=== PATIENT | male | born 1925 | race Caucasian/White ===

== ENCOUNTER 2016-05-18 09:25 | Inpatient (IN) ==
[2016-05-18] MEDS ORDERED: Vancomycin 1,000 MG VIAL IVPB ONE (09:29)
[2016-05-18] MEDS ORDERED: Piperacillin/Tazobactam 3.375 GM in D5% in Water (Mini-Bag+) 100 ML IVPB ONE (09:29)
[2016-05-18] MEDS ORDERED: 0.9 % Sodium Chloride 500 ML IVC ONE (09:31)
--- NOTE | 2016-05-18 09:37 | Emergency Department Note ---
Disposition Clinical Impression: Sepsis Qualifiers: Sepsis type: sepsis due to unspecified organism Qualified Code(s): A41.9 - Sepsis, unspecified organism UTI (urinary tract infection) Qualifiers: Urinary tract infection type: site unspecified Hematuria presence: with hematuria Qualified Code(s): N39.0 - Urinary tract infection, site not specified Disposition: Admitted As Inpatient Condition: Critical Time of Disposition: 11:14 General Adult HPI - General Chief complaint: ED Shortness of Breath/Dyspnea Stated complaint: A-Fib RVR/Pneumonia Time Seen by Provider: 05/18/16 09:28 Nursing Notes Reviewed: Yes Vital Signs Reviewed: Yes - History of Present Illness HPI Narrative: Mr. Manzo, an 89yo male[facility] This morning, patient had dyspnea. PMH: dementia, CKD III, CAD, HTN, HLD, A.Fib not anticoagulated rate controlled on metoprolol. - Related Data Home Medications Medication Instructions Recorded Confirmed Acetaminophen [Tylenol] 975 mg PO TID 12/20/15 12/20/15 Alfuzosin HCl [Uroxatral] 10 mg PO DAILY 12/20/15 12/20/15 Bisacodyl [Dulcolax] 10 mg RC DAILY PRN 12/20/15 12/20/15 Carboxymethylcellulos/Glycerin 1 drop OP TID 12/20/15 12/22/15 [Refresh Optive Gel Eye Drops] Hydrocortisone 1% CREAM [Cortaid] 1 appl TP BID PRN 12/20/15 12/20/15 Isosorbide MONOnitrate (24 HR) 15 mg PO DAILY 12/20/15 12/20/15 [Imdur] Ketotifen Fumarate [Zaditor] 1 drop OP BID 12/20/15 12/22/15 LORazepam [Ativan] 0.5 mg PO Q6HR PRN 12/20/15 12/20/15 Magnesium Hydroxide [Milk of 30 ml PO DAILY PRN 12/20/15 12/22/15 Magnesia] Menthol/Zinc Oxide [Calmoseptine 1 appl TP BID 12/20/15 12/20/15 Ointment Packet] Methyl Salicylate/Menthol [Bengay] 1 appl TP TID PRN 12/20/15 12/22/15 Metoprolol XL (24 HR) Succ [Toprol 50 mg PO BID 12/20/15 12/20/15 Xl] Nitroglycerin [Nitrostat] 0.4 mg SL PRN PRN 12/20/15 12/20/15 Ondansetron HCl [Zofran] 4 mg PO Q4HR PRN 12/20/15 12/20/15 Polyethylene Glycol 3350 [Purelax] 17 gm PO DAILY 12/20/15 12/20/15 Sennosides/Docusate Sodium [Eql 1 each PO BID 12/20/15 12/20/15 Stool Softener-Stim Lax Tb] TraZODone 100 mg PO HS 12/20/15 12/20/15 BuPROPion SR (12 HR) [Wellbutrin 100 mg PO DAILY 12/21/15 12/21/15 SR] Saline Nasal [place] [[place] Nasal 1 spray IN BID 12/22/15 12/22/15 [place]] Previous Rx's Medication Instructions Recorded Belladonna Alkaloids/Opium [B + O] 60 mg RC Q6HR PRN #5 supp.rect 12/23/15 Cephalexin [Keflex] 500 mg PO BID #6 capsule 12/23/15 Finasteride [Proscar] 5 mg PO DAILY tablet 12/23/15 Haloperidol 2 mg PO Q6HR PRN #15 tablet 12/23/15 Melatonin 6 mg PO HS tablet 12/23/15 Oxycodone HCl [Oxaydo] 5 mg PO Q6H PRN #20 tablet.orl 12/23/15 Allergies Allergy/AdvReac Type Severity Reaction Status Date / Time rosuvastatin Allergy See Verified 12/19/15 22:23 Comments tetanus and diphtheria Allergy See Verified 12/19/15 22:23 toxoids Comments [Tetanus&Diphtheria Toxoid] IV Contrast Allergy See Uncoded 10/23/15 17:59 Comments Limitations: ROS unobtainable due to patients medical condition Past Medical History - Past Medical History Medical history: Reports: arthritis, coronary artery disease, dementia, kidney stones, other (Alzheimer's dementia) Surgical history: Reports: coronary bypass (CABG), prostatectomy, ureteral stent Psychiatric history: Reports: anxiety - Social History Smoking Status: Former smoker Smokeless Tobacco Status: No Alcohol use: Reports: none Drug use: Reports: none Physical Exam General: Patient is not alert, not oriented, and in respiratory distress with mild accessory muscle use. HEENT: No facial asymmetry. Head is normocephalic and atraumatic. Pupils pinpoint and non-reactive. Trachea midline. Cardiovascular: Heart regular rate and rhythm without clicks, rubs, gallops, or murmurs. No JVD. PMI nondisplaced. 1+ pedal edema. Respiratory: Symmetric chest rise with poor respiratory effort. Bilateral breath sounds are clear without wheezing, crackles, or rhonchi. Abdomen: Bowel sounds present normoactive x-4 quadrants. Abdomen is soft, nondistended, and nontender. No organomegaly noted. Neuro: Retracts and localizes to painful stimuli. Integument: Midsternal scar, abdominal scaring. Psych: Patient's affect is appropriate for situation. Course Course Narrative: Patient is known DNR-CCA from the [place] inpatient custodial care. Patient meets SIRS criteria; currently source unknown. Patient is a poor historian; he is unable to answer simple yes/no questions. Will perform extensive sepsis workup looking for infectious source. UA indicated UTI. Hx mocrobioloty shows citrobacter. Will DC vand, start Rocephin. No leukocytosis. BMP indicates CKD. BNP is elevated. CXR concerning for pulmonary edema. Will give 20mg Lasix IV. 11:[address] Soares. Patient is accepted. She has no additional questions or recommendations at this time. Vital Signs Temperature 98.7 F 05/18/16 09:28 Pulse Rate 90 05/18/16 09:28 Respiratory Rate 22 05/18/16 09:28 Blood Pressure 173/119 05/18/16 09:28 O2 Sat by Pulse Oximetry 97 05/18/16 09:28 Temperature 98.7 F 05/18/16 09:28 Pulse Rate 109 05/18/16 11:00 Respiratory Rate 26 05/18/16 11:45 Blood Pressure 156/108 05/18/16 11:45 O2 Sat by Pulse Oximetry 98 05/18/16 11:00 Oxygen Delivery Oxygen Delivery Nasal Cannula Medical Decision Making - Medical Records Medical records reviewed: Yes I reviewed the patient's medical records. - Lab Data Result diagrams: 05/18/16 10:07 05/18/16 10:07 Lab Results 05/18/16 05/18/16 05/18/16 Range/Units 10:07 10:07 10:07 WBC 10.3 (4.3-11.1) K/mcL RBC 5.33 (4.19-5.50) M/mcL Hgb 14.1 (12.9-16.9) g/dL Hct 46.1 (37.5-50.1) % MCV 86.5 (83.0-100.0) fL MCH 26.5 L (28.0-33.3) pg MCHC 30.6 L (31.6-35.5) g/dL RDW 15.9 H (11.5-14.5) % Plt Count 226 (140-400) K/mcL MPV 9.6 (9.4-12.4) fL Immature Gran % 0.4 (0-4) % Seg Neutrophils % 69.1 % Lymphocytes % 20.6 % Monocytes % 9.7 % Eosinophils % 0.0 % Basophils % 0.2 % Neutrophils # 7.1 (1.6-8.9) K/mcL Lymphocytes # 2.1 (0.6-4.6) K/mcL Monocytes # 1.0 (0.0-1.3) K/mcL Eosinophils # 0.0 (0.0-0.6) K/mcL Basophils # 0.0 (0.0-0.2) K/mcL PT 20.7 H (9.4-12.1) Seconds INR 1.9 APTT 37.9 H (26.0-36.0) Seconds Sodium 141 (136-145) mEq/L Potassium 5.8 H (3.5-4.5) mEq/L Chloride 108 (98-109) mEq/L Carbon Dioxide 21 (19-29) mEq/L BUN 37 H (8-26) mg/dL Creatinine 1.93 H (0.72-1.25) mg/dL Est GFR ( Amer) 40 L (> 60) Est GFR (Non-Af Amer) 33 L (> 60) BUN/Creatinine Ratio 19 (6-26) Glucose 101 H (70-99) mg/dL Calculated Osmolality 301 H (280-300) Lactic Acid (0.5-2.2) mmol/L Calcium 9.6 (8.6-10.8) mg/dL Troponin I (0-0.03) ng/mL B-Natriuretic Peptide (0-100) pg/mL Urine Color (Yellow) Urine Clarity (Clear) Urine pH (5.0-8.0) pH Units Ur Specific [place] (1.010-1.025) Urine Protein (Neg-Trace) mg/dL Urine Glucose (UA) (Normal) mg/dL Urine Ketones (Negative) mg/dL Urine Blood (Negative) Urine Nitrite (Negative) Urine Bilirubin (Negative) Urine Urobilinogen (Normal) mg/dL Ur Leukocyte Esterase (Negative) Urine Microscopic RBC (0-3) per hpf Urine Microscopic WBC (0-3) per hpf Ur Squamous Epith Cells (None-Few) per lpf Urine Bacteria (None-Few) per hpf Hyaline Casts (None-Few) per lpf Ur Culture Indicated? (NO) 05/18/16 05/18/16 05/18/16 Range/Units 10:07 10:07 10:07 WBC (4.3-11.1) K/mcL RBC (4.19-5.50) M/mcL Hgb (12.9-16.9) g/dL Hct (37.5-50.1) % MCV (83.0-100.0) fL MCH (28.0-33.3) pg MCHC (31.6-35.5) g/dL RDW (11.5-14.5) % Plt Count (140-400) K/mcL MPV (9.4-12.4) fL Immature Gran % (0-4) % Seg Neutrophils % % Lymphocytes % % Monocytes % % Eosinophils % % Basophils % % Neutrophils # (1.6-8.9) K/mcL Lymphocytes # (0.6-4.6) K/mcL Monocytes # (0.0-1.3) K/mcL Eosinophils # (0.0-0.6) K/mcL Basophils # (0.0-0.2) K/mcL PT (9.4-12.1) Seconds INR APTT (26.0-36.0) Seconds Sodium (136-145) mEq/L Potassium (3.5-4.5) mEq/L Chloride (98-109) mEq/L Carbon Dioxide (19-29) mEq/L BUN (8-26) mg/dL Creatinine (0.72-1.25) mg/dL Est GFR ( Amer) (> 60) Est GFR (Non-Af Amer) (> 60) BUN/Creatinine Ratio (6-26) Glucose (70-99) mg/dL Calculated Osmolality (280-300) Lactic Acid 3.1 H (0.5-2.2) mmol/L Calcium (8.6-10.8) mg/dL Troponin I 0.01 (0-0.03) ng/mL B-Natriuretic Peptide 1748 H (0-100) pg/mL Urine Color (Yellow) Urine Clarity (Clear) Urine pH (5.0-8.0) pH Units Ur Specific [place] (1.010-1.025) Urine Protein (Neg-Trace) mg/dL Urine Glucose (UA) (Normal) mg/dL Urine Ketones (Negative) mg/dL Urine Blood (Negative) Urine Nitrite (Negative) Urine Bilirubin (Negative) Urine Urobilinogen (Normal) mg/dL Ur Leukocyte Esterase (Negative) Urine Microscopic RBC (0-3) per hpf Urine Microscopic WBC (0-3) per hpf Ur Squamous Epith Cells (None-Few) per lpf Urine Bacteria (None-Few) per hpf Hyaline Casts (None-Few) per lpf Ur Culture Indicated? (NO) 05/18/16 Range/Units 10:31 WBC (4.3-11.1) K/mcL RBC (4.19-5.50) M/mcL Hgb (12.9-16.9) g/dL Hct (37.5-50.1) % MCV (83.0-100.0) fL MCH (28.0-33.3) pg MCHC (31.6-35.5) g/dL RDW (11.5-14.5) % Plt Count (140-400) K/mcL MPV (9.4-12.4) fL Immature Gran % (0-4) % Seg Neutrophils % % Lymphocytes % % Monocytes % % Eosinophils % % Basophils % % Neutrophils # (1.6-8.9) K/mcL Lymphocytes # (0.6-4.6) K/mcL Monocytes # (0.0-1.3) K/mcL Eosinophils # (0.0-0.6) K/mcL Basophils # (0.0-0.2) K/mcL PT (9.4-12.1) Seconds INR APTT (26.0-36.0) Seconds Sodium (136-145) mEq/L Potassium (3.5-4.5) mEq/L Chloride (98-109) mEq/L Carbon Dioxide (19-29) mEq/L BUN (8-26) mg/dL Creatinine (0.72-1.25) mg/dL Est GFR ( Amer) (> 60) Est GFR (Non-Af Amer) (> 60) BUN/Creatinine Ratio (6-26) Glucose (70-99) mg/dL Calculated Osmolality (280-300) Lactic Acid (0.5-2.2) mmol/L Calcium (8.6-10.8) mg/dL Troponin I (0-0.03) ng/mL B-Natriuretic Peptide (0-100) pg/mL Urine Color Dark Yellow (Yellow) Urine Clarity Cloudy A (Clear) Urine pH 5.5 (5.0-8.0) pH Units Ur Specific [place] 1.025 (1.010-1.025) Urine Protein >=300 H (Neg-Trace) mg/dL Urine Glucose (UA) Normal (Normal) mg/dL Urine Ketones Negative (Negative) mg/dL Urine Blood Large H (Negative) Urine Nitrite Negative (Negative) Urine Bilirubin Negative (Negative) Urine Urobilinogen Normal (Normal) mg/dL Ur Leukocyte Esterase Moderate H (Negative) Urine Microscopic RBC 50-100 H (0-3) per hpf Urine Microscopic WBC TNTC H (0-3) per hpf Ur Squamous Epith Cells Moderate H (None-Few) per lpf Urine Bacteria Few (None-Few) per hpf Hyaline Casts None Seen (None-Few) per lpf Ur Culture Indicated? YES A (NO) - EKG Data EKG #1 EKG attestation: Yes I reviewed and interpreted this EKG. EKG results narrative: EKG dated 18 May 2016 interpreted as A. Fib with RVR with rate of 109, non- specific STT changes. Compared to pantera dated 12/19/2015 also showing A. Fir with RVR; no acute ischemic changes in comparison.
--- NOTE | 2016-05-18 10:06 | Emergency Department Note ---
START Narrative - START START: I examined this patient and my medical decision-making was reviewed with the HARD TILE SETTER/PA/Advanced Practice Nurse/Resident Physician. I agree with the documented findings, disposition and treatment plan as described except to the extent set forth below. ED attending: Patient's emergency medicine resident Dr. Yoo. Please see copy of this note for H&P evaluation and management and ED disposition. We both had independent [id number] time in contact with this patient. Briefly: A 89-year-old patient by EMS from the [facility]. Patient is DO NOT RESUSCITATE comfort care brought in from the ECF portion of the [facility] with tachycardia and decreased mental status. There was question of possible pneumonia. Patient has altered mental status: Extremities tachycardic A. fib with RVR in the 120s. Patient will undergo sepsis workup. With admission anticipated. Provided 35 minutes of medical care service for this patient. Disposition pending.
[2016-05-18 10:15] LABS: Basophils % 0.2 %; Hematocrit 46.1 % (37.5-50.1); Hemoglobin 14.1 g/dL (12.9-16.9); Immature Granulocytes % 0.4 % (0-4); Lymphocytes # 2.1 K/mcL (0.6-4.6); Lymphocytes % 20.6 %; Mean Corpuscular HGB Conc 30.6 g/dL (31.6-35.5); Mean Corpuscular Hemoglobin 26.5 pg (28.0-33.3); Mean Corpuscular Volume 86.5 fL (83.0-100.0); Mean Platelet Volume 9.6 fL (9.4-12.4); Monocytes % 9.7 %; Neutrophils # 7.1 K/mcL (1.6-8.9); Platelet Count 226 K/mcL (140-400); Red Blood Count 5.33 M/mcL (4.19-5.50); Red Cell Distribution Width 15.9 % (11.5-14.5); Segmented Neutrophils % 69.1 %
[2016-05-18 10:20] LABS: INR 1.9; Prothrombin Time 20.7 Seconds (9.4-12.1)
[2016-05-18 10:23] LABS: Activated Partial Thrombo Time 37.9 Seconds (26.0-36.0)
[2016-05-18 10:26] LABS: Calcium 9.6 mg/dL (8.6-10.8); Potassium 5.8 mEq/L (3.5-4.5)
[2016-05-18 10:44] LABS: Bilirubin,Urine Negative (Negative); Blood,Urine Large (Negative); Clarity,Urine Cloudy (Clear); Color,Urine Dark Yellow (Yellow); Glucose,Urine (UA) Normal (Normal); Ketones,Urine Negative (Negative); Leukocyte Esterase,Urine Moderate (Negative); Nitrite,Urine Negative (Negative); PH,Urine 5.5 pH Units (5.0-8.0); Protein,Urine >=300 mg/dL (Neg-Trace); Specific Gravity,Urine 1.025 (1.010-1.025); Urobilinogen,Urine Normal (Normal)
[2016-05-18 10:46] LABS: Bacteria,Urine Few per hpf (None-Few); Hyaline Casts,Urine None Seen per lpf (None-Few); RBC,Urine 50-100 per hpf (0-3); Squamous Epithelial Cell,Urine Moderate per lpf (None-Few); WBC,Urine TNTC per hpf (0-3)
[2016-05-18] MEDS ORDERED: Furosemide 20 MG/2 ML VIAL IVP ONE (11:05)
[2016-05-18] MEDS ORDERED: Naloxone 0.4 MG/ML INJ IVP PRN (12:01)
[2016-05-18] MEDS ORDERED: Ondansetron 4 MG/2 ML VIAL IVP PRN (12:01)
[2016-05-18] MEDS ORDERED: Acetaminophen 325 MG TABLET PO PRN (12:01)
--- NOTE | 2016-05-18 12:05 | Internal Med History&Physical ---
Date of Encounter: 05/18/16 Time of Encounter: 11:20 Assessment and Plan (1) Acute respiratory failure with hypoxemia Current visit: Yes Status: Acute Secondary to pulmonary edema and pleural effusion. Not on oxygen at home. Chest x-ray revealed cardiomegaly with mild pulmonary vascular congestion and moderate bilateral pleural effusions with associated bibasilar atelectasis. EKG initially shows atrial fibrillation, heart rate 109, no new changes. IV Lasix 20 mg 3 times a day. fluid restriction 1.5 L. Daily weights. Strict ins and outs. Continue home dose metoprolol. Requiring 3 L of oxygen via nasal cannula. (2) Pulmonary edema Current visit: Yes Status: Acute Plan as above. Qualifiers: Chronicity: acute Qualified Code(s): J81.0 - Acute pulmonary edema (3) UTI (urinary tract infection) Current visit: Yes Status: Acute Urinalysis is suggestive of urinary infection. Given history of Citrobacter susceptible to ceftriaxone, I will continue IV ceftriaxone. No signs of sepsis. Qualifiers: Urinary tract infection type: site unspecified Hematuria presence: without hematuria Qualified Code(s): N39.0 - Urinary tract infection, site not specified (4) Atrial fibrillation Current visit: Yes Status: Acute Chronic atrial fibrillation. Heart rate 109. Resume home dose of metoprolol 25 mg twice a day. Qualifiers: Atrial fibrillation type: chronic Qualified Code(s): I48.2 - Chronic atrial fibrillation (5) CKD (chronic kidney disease) stage 3, GFR 30-59 ml/min Current visit: Yes Status: Acute At baseline. Avoid nephrotoxins as possible. close monitoring of kidney function. (6) HTN (hypertension) Current visit: Yes Status: Acute Not controlled. Could be due to pulmonary edema and agitation. IV hydralazine when necessary. Continue IV Lasix. Qualifiers: Hypertension type: essential hypertension Qualified Code(s): I10 - Essential (primary) hypertension (7) CAD (coronary artery disease) Current visit: No Status: Acute Continue home dose of Imdur, metoprolol. Qualifiers: Coronary Disease-Associated Artery/Lesion type: [place] artery [place] vs. transplanted heart: [place] heart Associated angina: without angina Qualified Code(s): I25.10 - Atherosclerotic heart disease of [place] coronary artery without angina pectoris (8) Dementia Current visit: No Status: Acute Haldol as needed. Qualifiers: Dementia type: Alzheimer's disease Alzheimer's disease onset: unspecified onset Dementia behavioral disturbance: without behavioral disturbance Qualified Code(s): G30.9 - Alzheimer's disease, unspecified; F02.80 - Dementia in other diseases classified elsewhere without behavioral disturbance Internal Medicine - H&P: HPI Chief complaint: shortness of breath this morning. Admitted From: Long-term Nursing Facility Plans for Post Hospital Care: Transfer Residential Facility History of present illness: Mr. Manzo is a 89 year old male with past medical history of CAD status post CABG, atrial fibrillation/atrial flutter, hypertension, CKD 3, and advanced Alzheimer dementia. He is a resident of the inpatient [facility] and is a DNR-CCA. Patient has dementia and is not able to provide a detail history of present illness. I reviewed prior records. Nurse in [facility] difficulty breathing, tachycardia, bilateral lower extremity swelling, hypoxemia and changes in mental status that started this morning. Unknown baseline mental status but per records patient has a diagnosis of hypersomnia and is now somewhat more lethargic. No fever. No chest pain. No diarrhea. no cough. No urinary complaints. In the ED, patient was tachycardic, hypoxemic and very sleepy. UA was suspected of infection and patient has a history of Citrobacter UTI susceptible to ceftriaxone. BNP high. CXR showed pulm vascular congestion. He received IV ceftriaxone and 20 mg IV Lasix. Family history unable to obtain due to mental status changes. Past Med Surg Social Fam HX - Past Medical History Medical history: arthritis, coronary artery disease, dementia, kidney stones, other (Alzheimer's dementia) Psychiatric history: anxiety - Past Surgical History Surgical History: coronary bypass (CABG), prostatectomy, ureteral stent - Social History Smoking Status: Former smoker Smokeless Tobacco Status: No Alcohol use: none Drug use: none Internal Medicine - H&P: Meds Acetaminophen [Tylenol] 975 mg PO TID 12/20/15 [History] Alfuzosin HCl [Uroxatral] 10 mg PO DAILY 12/20/15 [History] Bisacodyl [Dulcolax] 10 mg RC DAILY PRN 12/20/15 [History] Carboxymethylcellulos/Glycerin [Refresh Optive Gel Eye Drops] 1 drop OP TID 09/28 [History] Hydrocortisone 1% CREAM [Cortaid] 1 appl TP BID PRN 12/20/15 [History] Isosorbide MONOnitrate (24 HR) [Imdur] 15 mg PO DAILY 12/20/15 [History] Ketotifen Fumarate [Zaditor] 1 drop OP BID 12/20/15 [History] LORazepam [Ativan] 0.5 mg PO Q6HR PRN 12/20/15 [History] Magnesium Hydroxide [Milk of Magnesia] 30 ml PO DAILY PRN 12/20/15 [History] Menthol/Zinc Oxide [Calmoseptine Ointment Packet] 1 appl TP BID 12/20/15 [ History] Methyl Salicylate/Menthol [Bengay] 1 appl TP TID PRN 12/20/15 [History] Metoprolol XL (24 HR) Succ [Toprol Xl] 50 mg PO BID 12/20/15 [History] Nitroglycerin [Nitrostat] 0.4 mg SL PRN PRN 12/20/15 [History] Ondansetron HCl [Zofran] 4 mg PO Q4HR PRN 12/20/15 [History] Polyethylene Glycol 3350 [Purelax] 17 gm PO DAILY 12/20/15 [History] Sennosides/Docusate Sodium [Eql Stool Softener-Stim Lax Tb] 1 each PO BID [History] TraZODone 100 mg PO HS 12/20/15 [History] BuPROPion SR (12 HR) [Wellbutrin SR] 100 mg PO DAILY 12/21/15 [History] Saline Nasal [place] [[place] Nasal [place]] 1 spray IN BID 12/22/15 [History] Belladonna Alkaloids/Opium [B + O] 60 mg RC Q6HR PRN #5 supp.rect 12/23/15 [Rx] Cephalexin [Keflex] 500 mg PO BID #6 capsule 12/23/15 [Rx] Finasteride [Proscar] 5 mg PO DAILY tablet 12/23/15 [Rx] Haloperidol 2 mg PO Q6HR PRN #15 tablet 12/23/15 [Rx] Melatonin 6 mg PO HS tablet 12/23/15 [Rx] Oxycodone HCl [Oxaydo] 5 mg PO Q6H PRN #20 tablet.orl 12/23/15 [Rx] Allergies rosuvastatin Allergy (Verified 12/19/15 22:23) See Comments tetanus and diphtheria toxoids [Tetanus&Diphtheria Toxoid] Allergy (Verified 08/28 22:23) See Comments IV Contrast Allergy (Uncoded 10/23/15 17:59) See Comments ROS unobtainable: due to mental status All Systems PM: A 10-system review of systems was performed and is negative for pertinent findings except as documented above in the HPI. - Constitutional Vitals: Temp Pulse Resp BP Pulse Ox 98.7 F 109 26 156/108 98 05/18/16 09:28 05/18/16 11:00 05/18/16 11:45 05/18/16 11:45 05/18/16 11:00 Exam: Patient is somnolent however he arouses and localizes painful stimuli. He opened his eyes, gave me an angry face and told me that the room is cold, then he went back to sleep immediately. - Eye Eye exam: Present: PERRL, sclera anicteric - Neck Neck exam general surgery: Present: supple, trachea midline. Absent: lymphadenopathy - Respiratory Respiratory exam: Present: decreased breath sounds (Bilaterally. No wheezes.) - Cardiovascular Cardiovascular exam: Present: irregular rhythm - GI/Abdominal GI/Abdominal exam: Present: normal bowel sounds, soft. Absent: distended, tenderness Additional comments: Leung catheter in place with cloudy urine. - Extremities Exam Extremities exam: Present: pedal edema Additional comments: Chronic lower extremity swelling with 1 ulcer in the anterior area of his left leg. No signs of infection. - Skin Skin exam: Absent: intact (left Leg ulcer.), normal color Internal Med - H&P Results - Labs CBC & Chem 7: 05/18/16 10:07 05/18/16 10:07
[2016-05-18] MEDS: Haloperidol Lactate 5 MG/ML VIAL IVP PRN ×2 (14:03→18:00)
[2016-05-18] MEDS: Levalbuterol Neb 0.63 MG/3 ML IH SCH ×3 (16:34→22:30)
[2016-05-18] MEDS: Ipratropium Neb 0.5 MG NEBULIZER IH SCH ×3 (16:34→22:30)
[2016-05-18] MEDS: Furosemide 20 MG/2 ML VIAL IVP SCH ×2 (17:15→22:04)
[2016-05-18] MEDS: *HR* Metoprolol 5 MG/5 ML VIAL IVP SCH (17:15)
[2016-05-18] MEDS: *HR* LORazepam 2 MG/ML VIAL IVP PRN (22:04)
[2016-05-19] MEDS: *HR* Metoprolol 5 MG/5 ML VIAL IVP SCH ×4 (01:23→17:09)
[2016-05-19] MEDS: Ipratropium Neb 0.5 MG NEBULIZER IH SCH ×6 (03:48→23:06)
[2016-05-19] MEDS: Levalbuterol Neb 0.63 MG/3 ML IH SCH ×6 (03:48→23:08)
[2016-05-19 06:24] LABS: Basophils % 0.2 %; Hemoglobin 14.8 g/dL (12.9-16.9); Immature Granulocytes % 0.8 % (0-4); Lymphocytes # 2.1 K/mcL (0.6-4.6); Lymphocytes % 17.3 %; Mean Corpuscular HGB Conc 31.5 g/dL (31.6-35.5); Mean Corpuscular Volume 85.6 fL (83.0-100.0); Mean Platelet Volume 9.9 fL (9.4-12.4); Monocytes # 1.3 K/mcL (0.0-1.3); Monocytes % 10.4 %; Neutrophils # 8.8 K/mcL (1.6-8.9); Platelet Count 219 K/mcL (140-400); Red Blood Count 5.49 M/mcL (4.19-5.50); Red Cell Distribution Width 17.2 % (11.5-14.5); Segmented Neutrophils % 71.3 %
[2016-05-19 06:31] LABS: INR 1.7; Prothrombin Time 19.1 Seconds (9.4-12.1)
[2016-05-19 06:42] LABS: Calcium 9.5 mg/dL (8.6-10.8); Phosphorous 4.7 mg/dL (2.3-4.7)
[2016-05-19 06:54] LABS: Potassium 4.6 mEq/L (3.5-4.5)
--- NOTE | 2016-05-19 08:32 | ECHO - Doppler Report ---
Echocardiogram Name: Kai Manzo Date of Study: 05/18/2016 Date: 1925 Ht: 71.0 in Medical Record#: [id number] Age: 89 Wt: 221.0 lb Gender: Male BSA: 2.2 Order #: [id number] Location: [facility] Room #: [id number] Reading Physician: Antonio Barnett DO, FACC, FASE, FASNC Hardware Installation Coordinator: Bridget Sweeney Ordering Physician: Jenna Yang MD Primary Physician: [facility] Indications: Pulmonary edema Impressions: Technically sub-optimal due to clinical status. Only a few images obtained as patient combative and refused to complete the study. Unable to accurately comment on LVEF as only a few images were obtained. Septal motion did appear atypical and LV function did appear reduced. Findings: Study Quality * Technically sub-optimal due to clinical status. Only a few images obtained. Patient combative and refused to complete the study. ECG Findings * Rhythm appeared to be atrial fibrillation with RVR. Left Ventricle * Unable to accurately comment on LVEF as only a few images were obtained. Septal motion did appear atypical and LV function did appear reduced. %. Right Ventricle * Right ventricle was not evaluated. Interatrial Septum * Interatrial septum not well evaluated. Aortic Valve * Mildly calcified aortic valve leaflets. * Trace aortic regurgitation. Mitral Valve * No mitral annular calcification * Trace mitral regurgitation. Pericardium * The pericardium appears normal. Aorta * Normally sized aortic root. Left Atrium * Severely dilated left atrium in the parasternal long axis view obtained. History Hypertension History of CAD/PTCA Measurements: BP: 137/ 105 2D Normal Values RVIDd: 3.50 cm <2.7 cm IVSd: 1.20 cm 0.6 - 1.0 cm LVIDd: 4.90 cm 3.7 - 5.6 cm LVPWd: 1.10 cm 0.6 - 1.1 cm LVIDs: 3.50 cm 1.5 - 3.6 cm AO: 3.20 cm < 4.0 cm LA: 5.70 cm 2.0 - 4.0cm %FS: 28.60 cm >25 % LA volume: Updated by Antonio Barnett DO, FACC, FASE, FASNC on 05/19/2016 8:26:28 AM electronically signed on 05/19/2016 8:27:07 AM with status of Final Wall Motion Lim: 1=Normal, 2=Hypokinesis, 3=Akinesis, 4=Dyskinesis, 5=Aneurysmal, 6=Hyperkinetic, X=Not Visualized (Blank)=Missing
[2016-05-19] MEDS: *HR* LORazepam 2 MG/ML VIAL IVP PRN ×3 (09:31→21:36)
[2016-05-19] MEDS: Pantoprazole 40 MG VIAL IVP SCH (10:32)
[2016-05-19] MEDS: Furosemide 20 MG/2 ML VIAL IVP SCH ×3 (10:32→21:36)
[2016-05-19] MEDS ORDERED: Bisacodyl 10 MG RECTAL SUPPOSITORY RC PRN (17:41)
--- NOTE | 2016-05-19 17:49 | Internal Med Progress Note ---
Date of Encounter: 05/19/16 Time of Encounter: 17:44 - Assessment and plan (1) UTI (urinary tract infection) Current Visit: Yes Status: Acute Assessment and plan: Urinalysis is suggestive of urinary infection. Urine culture : contaminated and not able to identify previous culture Citrobactor : Sensitive to ceftriaxone on ceftriaxone Day 2 Urine is likely source of sepsis Qualifiers: Urinary tract infection type: site unspecified Hematuria presence: without hematuria Qualified Code(s): N39.0 - Urinary tract infection, site not specified (2) Acute respiratory failure with hypoxemia Current Visit: Yes Status: Acute Assessment and plan: responded well to diuretic therapy will back up n diuretics (3) Atrial fibrillation Current Visit: Yes Status: Acute Assessment and plan: rate controlled Afib not on any A/c : high fall risk Qualifiers: Atrial fibrillation type: chronic Qualified Code(s): I48.2 - Chronic atrial fibrillation (4) HTN (hypertension) Current Visit: Yes Status: Acute Assessment and plan: will continue home medications Qualifiers: Hypertension type: essential hypertension Qualified Code(s): I10 - Essential (primary) hypertension (5) CKD (chronic kidney disease) stage 3, GFR 30-59 ml/min Current Visit: Yes Status: Acute - Subjective Interval history: seen and examined no new complaints occasionally get aggressive - Constitutional Vitals: Temp Pulse Resp BP Pulse Ox 96.7 F L 100 24 141/65 100 05/19/16 15:34 05/19/16 15:34 05/19/16 16:30 05/19/16 15:34 05/19/16 16:30 - Head Head exam: Present: atraumatic, normocephalic - Eye Eye exam: Present: PERRL, conjuntiva pink, sclera anicteric Pupils: Present: PERRL - Neck Neck exam general surgery: Present: supple, trachea midline. Absent: lymphadenopathy - Respiratory Respiratory exam: Present: CTAB. Absent: accessory muscle use, rales, rhonchi, wheezes - Cardiovascular Cardiovascular exam: Present: RRR, +S1, +S2. Absent: diastolic murmur, gallop, rubs, systolic murmur - GI/Abdominal GI/Abdominal exam: Present: normal bowel sounds, soft, no peritoneal signs. Absent: distended, tenderness - Extremities Exam Extremities exam: Present: warm, radial pulses palpable and symetrical. Absent : calf tenderness, cyanotic, pedal edema - Neurological Exam Neurological exam: Present: CN II-XII intact, oriented X3, no focal deficits. Absent: pronater drift, facial droop, speech deficit - Skin Skin exam: Present: dry, intact Internal Medicine: Result - Labs CBC & Chem 7: 05/19/16 05:52 05/19/16 05:52 Labs: Short CBC 05/19/16 Range/Units 05:52 WBC 12.3 H (4.3-11.1) K/mcL Hgb 14.8 (12.9-16.9) g/dL Hct 47.0 (37.5-50.1) % Plt Count 219 (140-400) K/mcL Neutrophils # 8.8 (1.6-8.9) K/mcL BMP 05/19/16 05:52 Sodium 144 Potassium 4.6 H D Chloride 105 Carbon Dioxide 24 BUN 45 H Creatinine 2.07 H Glucose 105 H Calcium 9.5 - ABG Interpretation ABG results: PT/INR, D-dimer PT 19.1 Seconds (9.4-12.1) H 05/19/16 05:52 Consult Discharge Plan - Plan [facility]errals: [facility] [Primary Care Provider] -
[2016-05-19] MEDS: Artificial Tears SOLN 15 ML BOTTLE OP SCH (23:13)
[2016-05-19] MEDS: (Ketotifen Fumarate [Zaditor] 1 DROP) OP SCH (23:13)
[2016-05-19] MEDS: BUPROPION PO SCH (23:13)
[2016-05-19] MEDS: traZODone 50 MG TABLET PO SCH (23:14)
[2016-05-20] MEDS: *HR* Metoprolol 5 MG/5 ML VIAL IVP SCH ×5 (00:20→23:16)
[2016-05-20] MEDS: Levalbuterol Neb 0.63 MG/3 ML IH SCH ×4 (04:09→21:24)
[2016-05-20] MEDS: Ipratropium Neb 0.5 MG NEBULIZER IH SCH ×4 (04:10→21:23)
[2016-05-20] MEDS: *HR* LORazepam 2 MG/ML VIAL IVP PRN ×4 (04:58→21:01)
[2016-05-20] MEDS: Artificial Tears SOLN 15 ML BOTTLE OP SCH ×3 (08:47→21:03)
[2016-05-20] MEDS: Finasteride 5 MG TABLET PO SCH (08:47)
[2016-05-20] MEDS: BUPROPION PO SCH ×2 (08:47→21:03)
[2016-05-20] MEDS: Isosorbide MONOnitrate (24 HR) 30 MG TAB.ER.24H PO SCH (08:47)
[2016-05-20] MEDS: (Ketotifen Fumarate [Zaditor] 1 DROP) OP SCH ×2 (08:47→21:04)
[2016-05-20] MEDS ORDERED: Haloperidol Lactate 5 MG/ML VIAL IM ONE ×2 (10:17→11:35)
[2016-05-20] MEDS ORDERED: *HR* LORazepam 2 MG/ML VIAL IM ONE (10:30)
[2016-05-20] MEDS: Pantoprazole 40 MG VIAL IVP SCH (10:46)
--- NOTE | 2016-05-20 10:50 | Internal Med Progress Note ---
<Myles Larkin - Last Filed: 05/20/16 16:50> Date of Encounter: 05/20/16 Time of Encounter: 10:46 - Assessment and plan (1) Sepsis Current Visit: Yes Status: Acute Assessment and plan: -Multiple admissions for UTI. -WBC,tachy, urine is likely source. Lactate 3.1. -Urine culture too contaminated. Blood culture negative. -CXR shows moderate pleural effusions. Head CT shows no acute process. -Patient is hypovolemic, high creatinine. IV access removed by patient. Would benefit from fluids. BNP >500. Watch out for CHF/fluid overload Plan -Switch to zosyn and leviquin for broad spectrum. DC rocephin -1.5 fluid bolus. then 75mls/hr afterward. -Keep dawson Qualifiers: Sepsis type: sepsis due to unspecified organism Qualified Code(s): A41.9 - Sepsis, unspecified organism (2) UTI (urinary tract infection) Current Visit: Yes Status: Acute Assessment and plan: Urinalysis is suggestive of urinary infection. Urine culture : contaminated and not able to identify previous culture Citrobactor : Sensitive to ceftriaxone on ceftriaxone Day 3 Urine is likely source of sepsis Plan: -DC rocephine and start levaquin and zosyn for broad spectrum until urine sensitivity comes back -Urine culture redraw. Qualifiers: Urinary tract infection type: site unspecified Hematuria presence: without hematuria Qualified Code(s): N39.0 - Urinary tract infection, site not specified (3) Acute respiratory failure with hypoxemia Current Visit: Yes Status: Acute Assessment and plan: responded well to diuretic therapy will back up n diuretics -CXR shows mild pleural effusions. Oxgen saturation on RA 97%. Does have Kussmaul like respirations. Plan -Continue current therapy -Consider CT chest---thorocentesis if worsening. (4) Atrial fibrillation Current Visit: Yes Status: Acute Assessment and plan: -Tacky and irregular. Hypovolemic. Could benefit from fluids. -Could be exacerbated from urosepsis. -Not on any A/c : high fall risk -Family not present Plan -Continue home medication -Fluids -Treat urosepsis. Consider increasing home medication/digoxin administration if remain hypotensive Qualifiers: Atrial fibrillation type: chronic Qualified Code(s): I48.2 - Chronic atrial fibrillation (5) CKD (chronic kidney disease) stage 3, GFR 30-59 ml/min Current Visit: Yes Status: Acute (6) HTN (hypertension) Current Visit: Yes Status: Acute Assessment and plan: -Patient hypotensive at the moment. -will continue home medications/start on IV medications once line is placed. Qualifiers: Hypertension type: essential hypertension Qualified Code(s): I10 - Essential (primary) hypertension (7) Pulmonary edema Current Visit: Yes Status: Acute Assessment and plan: -See above Qualifiers: Chronicity: acute Qualified Code(s): J81.0 - Acute pulmonary edema (8) LUAN (acute kidney injury) Current Visit: No Status: Acute Assessment and plan: -Fluids on board. Continue to monitor. (9) Chronic pain syndrome Current Visit: No Status: Chronic Assessment and plan: -Home medication of oxycodone -No family members to verify Plan -Watch out for withdrawal -Initiate CWA protocol as precaution (10) DVT prophylaxis Current Visit: Yes Status: Acute Assessment and plan: -INR 1.7 -Lovenox ordered - Subjective Interval history: Patient appears agitated. Not responding to commands. Doesn't open his eye. He is not in respiratory distress. Unable to get IV access with Ultrasound. Will attempt femoral central line and order restraints on patient. - Constitutional Vitals: Temp Pulse Resp BP Pulse Ox 97.8 F 110 32 105/92 100 05/20/16 05:00 05/20/16 05:00 05/20/16 05:00 05/20/16 05:00 05/20/16 05:00 General appearance: Present: mild distress. Absent: A&O X 3, answers questions appropriately - Head Head exam: Present: atraumatic, normocephalic - Eye Eye exam: Present: PERRL, conjuntiva pink, sclera anicteric Pupils: Absent: fixed, irregular, mydriatic - Neck Neck exam general surgery: Present: supple, trachea midline. Absent: lymphadenopathy - Respiratory Respiratory exam: Present: CTAB. Absent: accessory muscle use - Cardiovascular Cardiovascular exam: Present: irregular rhythm, +S1, +S2. Absent: diastolic murmur, gallop, rubs, systolic murmur - GI/Abdominal GI/Abdominal exam: Present: normal bowel sounds, soft, no peritoneal signs. Absent: distended, tenderness - Extremities Exam Extremities exam: Present: warm, radial pulses palpable and symetrical. Absent : calf tenderness, cyanotic, pedal edema - Neurological Exam Neurological exam: Present: altered, no focal deficits. Absent: oriented X3, facial droop - Skin Skin exam: Present: dry, intact Internal Medicine: Result - Labs CBC & Chem 7: 05/19/16 05:52 05/19/16 05:52 - ABG Interpretation ABG results: PT/INR, D-dimer PT 19.1 Seconds (9.4-12.1) H 05/19/16 05:52 Consult Discharge Plan - Plan [facility]errals: [facility] [Primary Care Provider] - <Gary Phan P - Last Filed: 05/20/16 18:12> Date of Encounter: 05/20/16 - Assessment and plan (1) UTI (urinary tract infection) Current Visit: Yes Status: Acute Qualifiers: Urinary tract infection type: site unspecified Hematuria presence: without hematuria Qualified Code(s): N39.0 - Urinary tract infection, site not specified (2) Acute respiratory failure with hypoxemia Current Visit: Yes Status: Acute (3) Atrial fibrillation Current Visit: Yes Status: Acute Qualifiers: Atrial fibrillation type: chronic Qualified Code(s): I48.2 - Chronic atrial fibrillation (4) HTN (hypertension) Current Visit: Yes Status: Acute Qualifiers: Hypertension type: essential hypertension Qualified Code(s): I10 - Essential (primary) hypertension (5) CKD (chronic kidney disease) stage 3, GFR 30-59 ml/min Current Visit: Yes Status: Acute - Constitutional Vitals: Temp Pulse Resp BP Pulse Ox 97.8 F 96 24 169/110 100 05/20/16 16:18 05/20/16 16:18 05/20/16 16:47 05/20/16 16:18 05/20/16 16:47 Internal Medicine: Result - Labs CBC & Chem 7: 05/19/16 05:52 05/19/16 05:52 - ABG Interpretation ABG results: PT/INR, D-dimer PT 19.1 Seconds (9.4-12.1) H 05/19/16 05:52 - Attending Attestation I examined this patient and my medical decision-making was reviewed with the [employer]/PA/Advanced Practice Nurse/Resident Physician. I agree with the documented findings, disposition and treatment plan as described except to the extent set forth below. spoke to at length. she prefers palliative and hospice consult. will call palliative tomorrow.
[2016-05-20] MEDS ORDERED: 0.9 % Sodium Chloride 1,500 ML IVC ONE (11:56)
--- NOTE | 2016-05-20 12:07 | Pulmonology Consult Note ---
<Lizet Lew - Last Filed: 05/20/16 12:31> Date of Encounter: 05/20/16 Time of Encounter: 12:04 Assessment and Plan (1) UTI (urinary tract infection) Current Visit: Yes Status: Acute UA was suggestive of urinary tract infection Urine culture was contaminated and organism unable to be identified Urine culture from prior visit demonstrated Citrobactor which was sensitive to ceftriaxone Ceftriaxone for coverage now while new culture pending Possibly contributing factor to AMS Pt agitated and pulled out IV access, multiple attempts to re-establish peripheral IV. Due to need for IV medications and need for access in case of deterioration, plan to proceed with central line if necessary Qualifiers: Urinary tract infection type: site unspecified Hematuria presence: without hematuria Qualified Code(s): N39.0 - Urinary tract infection, site not specified (2) Acute respiratory failure with hypoxemia Current Visit: Yes Status: Acute CXR revealed cardiomegaly with mild pulmonary vascular congestion and moderate bilateral pleural effusions with associated bibasilar atelectasis EKG demonstrated atrial fibrillation Lasix for diuresis, fluid restriction, strick ins and outs Responded well to lasix O2 sat 100% on RA (3) Atrial fibrillation Current Visit: Yes Status: Acute Hx of Afib with irregular rhythm on exam and HR 115 On home medication, metoprolol 25mg bid Qualifiers: Atrial fibrillation type: chronic Qualified Code(s): I48.2 - Chronic atrial fibrillation (4) CKD (chronic kidney disease) stage 3, GFR 30-59 ml/min Current Visit: Yes Status: Acute Avoid nephrotoxins as possible Continue to monitor kidney function (5) HTN (hypertension) Current Visit: Yes Status: Acute On exam BP 121/103 Possibly secondary to agitation at time of exam Hydralazine prn Qualifiers: Hypertension type: essential hypertension Qualified Code(s): I10 - Essential (primary) hypertension (6) DVT prophylaxis Current Visit: Yes Status: Acute Lovenox History of Present Illness Consult date: 05/20/16 Requesting physician: Gary Phan Reason for consult: hypoxemia, other (Sepsis) Chief complaint: AMS likely secondary to UTI History of present illness: Mr. Manzo is an 89 year old male who presented to [facility] from [facility] with difficulty breathing, tachycardia, BLL swelling, hypoxemia and changes in mental status. Pt has a history of CAD s/p CABG, afib/aflutter, HTN, CKD3, Advanced Alzheimer dementia. At time of arrival it was noted that [facility], pt was more lethargic than usual. UA was indicative of UTI however, the specimen was contaminated and an organism was not able to be identified. Due to hx of previous urine culture with Citrobactor, sensitive to Ceftriaxone, pt was started on this medication. Since being in the hospital, pt has become agitated and uncooperative with staff, pulling out his IV access and disconnecting monitors. Nurses had attempted multiple times to restart peripheral IV including the use of the vein finder. For this reason, plan is for central line placement as pt is in need of IV medications and needs access in case condition deteriorates. Past Med Surg Social Fam HX - Past Medical History Medical history: arthritis, coronary artery disease, dementia, kidney stones, other (Alzheimer's dementia) Psychiatric history: anxiety - Past Surgical History Surgical History: coronary bypass (CABG), prostatectomy, ureteral stent - Social History Smoking Status: Former smoker Smokeless Tobacco Status: No Alcohol use: none Drug use: none Medications and Allergies Acetaminophen [Tylenol] 975 mg PO TID 12/20/15 [History] Bisacodyl [Dulcolax] 10 mg RC DAILY PRN 12/20/15 [History] Carboxymethylcellulos/Glycerin [Refresh Optive Gel Eye Drops] 1 drop OP TID 09/28 [History] Hydrocortisone 1% CREAM [Cortaid] 1 appl TP BID PRN 12/20/15 [History] Isosorbide MONOnitrate (24 HR) [Imdur] 15 mg PO DAILY 12/20/15 [History] Ketotifen Fumarate [Zaditor] 1 drop OP BID 12/20/15 [History] LORazepam [Ativan] 0.5 mg PO Q6HR PRN 12/20/15 [History] Magnesium Hydroxide [Milk of Magnesia] 30 ml PO DAILY PRN 12/20/15 [History] Menthol/Zinc Oxide [Calmoseptine Ointment Packet] 1 appl TP BID 12/20/15 [ History] Methyl Salicylate/Menthol [Bengay] 1 appl TP TID PRN 12/20/15 [History] Nitroglycerin [Nitrostat] 0.4 mg SL PRN PRN 12/20/15 [History] Ondansetron HCl [Zofran] 4 mg PO Q4HR PRN 12/20/15 [History] Polyethylene Glycol 3350 [Purelax] 17 gm PO DAILY 12/20/15 [History] Sennosides/Docusate Sodium [Eql Stool Softener-Stim Lax Tb] 1 tab PO BID [History] TraZODone 100 mg PO HS 12/20/15 [History] BuPROPion SR (12 HR) [Wellbutrin SR] 50 mg PO BID 12/21/15 [History] Saline Nasal Radford [Gough Nasal Radford] 1 spray IN BID 12/22/15 [History] Finasteride [Proscar] 5 mg PO DAILY tablet 12/23/15 [Rx] Haloperidol 2 mg PO Q6HR PRN #15 tablet 12/23/15 [Rx] Melatonin 6 mg PO HS tablet 12/23/15 [Rx] Oxycodone HCl [Oxaydo] 5 mg PO Q6H PRN #20 tablet.orl 12/23/15 [Rx] Metoprolol [Lopressor] 25 mg PO BID 05/18/16 [History] Mirtazapine [Remeron] 7.5 mg PO HS 05/18/16 [History] OxyCODONE ER (12 HR) [OxyCONTIN] 20 mg PO Q12HR 05/18/16 [History] Allergies rosuvastatin Allergy (Verified 12/19/15 22:23) See Comments tetanus and diphtheria toxoids [Tetanus&Diphtheria Toxoid] Allergy (Verified 08/28 22:23) See Comments IV Contrast Allergy (Uncoded 10/23/15 17:59) See Comments ROS unobtainable: due to mental status All Systems: A 10-system review of systems was performed and is negative for pertinent findings except as documented above in the HPI. Physical Examination Vital Signs: Vital Signs, Last 4 Hours Temp Pulse Resp BP Pulse Ox 05/20/16 11:02 96.9 F L 115 22 121/103 100 General appearance: agitated Eyes: nonicteric ENT: oropharynx dry Neck: supple Effort: normal Auscultation: bilateral: clear Cardiovascular: irregular rhythm, other (tachycardia) Gastrointestinal: normoactive bowel sounds, soft, non-tender Integumentary: other (BLE skin changes with erythema and multiple small, nondraining wounds) Extremities: no clubbing, pulses normal, edema (1+ BLE edema), other (Right foot appears dusky when compared to contralateral side) Musculoskeletal: other (RLE unable to extend at knee joint) other (Agitated and uncooperative, does not response to verbal questioning appropriately) Results - Laboratory Findings CBC and BMP: 05/19/16 05:52 05/19/16 05:52 PT/INR, D-dimer PT 19.1 Seconds (9.4-12.1) H 05/19/16 05:52 Abnormal lab findings: Abnormal lab results WBC 12.3 K/mcL (4.3-11.1) H 05/19/16 05:52 MCH 27.0 pg (28.0-33.3) L 05/19/16 05:52 MCHC 31.5 g/dL (31.6-35.5) L 05/19/16 05:52 RDW 17.2 % (11.5-14.5) H 05/19/16 05:52 PT 19.1 Seconds (9.4-12.1) H 05/19/16 05:52 APTT 37.9 Seconds (26.0-36.0) H 05/18/16 10:07 Potassium 4.6 mEq/L (3.5-4.5) H D 05/19/16 05:52 BUN 45 mg/dL (8-26) H 05/19/16 05:52 Creatinine 2.07 mg/dL (0.72-1.25) H 05/19/16 05:52 Est GFR ( Amer) 37 (> 60) L 05/19/16 05:52 Est GFR (Non-Af Amer) 30 (> 60) L 05/19/16 05:52 Glucose 105 mg/dL (70-99) H 05/19/16 05:52 POC Glucose 92 (58-89) H 05/19/16 12:18 Calculated Osmolality 310 (280-300) H 05/19/16 05:52 Lactic Acid 3.1 mmol/L (0.5-2.2) H 05/18/16 10:07 B-Natriuretic Peptide 1098 pg/mL (0-100) H 05/19/16 05:52 Urine Clarity Cloudy (Clear) A 05/18/16 10:31 Urine Protein >=300 mg/dL (Neg-Trace) H 05/18/16 10:31 Urine Blood Large (Negative) H 05/18/16 10:31 Ur Leukocyte Esterase Moderate (Negative) H 05/18/16 10:31 Urine Microscopic RBC 50-100 per hpf (0-3) H 05/18/16 10:31 Urine Microscopic WBC TNTC per hpf (0-3) H 05/18/16 10:31 Ur Squamous Epith Cells Moderate per lpf (None-Few) H 05/18/16 10:31 Ur Culture Indicated? YES (NO) A 05/18/16 10:31 - Clinical Findings Intake & Output: Intake & Output 05/19/16 05/20/16 05/20/16 23:59 07:59 15:59 Intake Total 0 / 0 0 / 0 Output Total 1949 1350 / 1350 Balance -1949 -1949 -1350 / -1350 Weight 91.1 kg Consult Discharge Plan - Plan Referrals: [facility] [Primary Care Provider] - <Espinoza Carrasco - Last Filed: 05/20/16 19:14> Date of Encounter: 05/20/16 All Systems: A 10-system review of systems was performed and is negative for pertinent findings except as documented above in the HPI. Physical Examination Vital Signs: Vital Signs, Last 4 Hours Temp Pulse Resp BP Pulse Ox 05/20/16 16:47 24 100 05/20/16 16:18 97.8 F 96 24 169/110 100 05/20/16 15:19 96.9 F L 115 22 121/103 100 Results - Laboratory Findings CBC and BMP: 05/19/16 05:52 05/19/16 05:52 PT/INR, D-dimer PT 19.1 Seconds (9.4-12.1) H 05/19/16 05:52 Abnormal lab findings: Abnormal lab results WBC 12.3 K/mcL (4.3-11.1) H 05/19/16 05:52 MCH 27.0 pg (28.0-33.3) L 05/19/16 05:52 MCHC 31.5 g/dL (31.6-35.5) L 05/19/16 05:52 RDW 17.2 % (11.5-14.5) H 05/19/16 05:52 PT 19.1 Seconds (9.4-12.1) H 05/19/16 05:52 APTT 37.9 Seconds (26.0-36.0) H 05/18/16 10:07 Potassium 4.6 mEq/L (3.5-4.5) H D 05/19/16 05:52 BUN 45 mg/dL (8-26) H 05/19/16 05:52 Creatinine 2.07 mg/dL (0.72-1.25) H 05/19/16 05:52 Est GFR ( Amer) 37 (> 60) L 05/19/16 05:52 Est GFR (Non-Af Amer) 30 (> 60) L 05/19/16 05:52 Glucose 105 mg/dL (70-99) H 05/19/16 05:52 POC Glucose 92 (58-89) H 05/19/16 12:18 Calculated Osmolality 310 (280-300) H 05/19/16 05:52 Lactic Acid 3.1 mmol/L (0.5-2.2) H 05/18/16 10:07 B-Natriuretic Peptide 1098 pg/mL (0-100) H 05/19/16 05:52 Urine Clarity Cloudy (Clear) A 05/18/16 10:31 Urine Protein >=300 mg/dL (Neg-Trace) H 05/18/16 10:31 Urine Blood Large (Negative) H 05/18/16 10:31 Ur Leukocyte Esterase Moderate (Negative) H 05/18/16 10:31 Urine Microscopic RBC 50-100 per hpf (0-3) H 05/18/16 10:31 Urine Microscopic WBC TNTC per hpf (0-3) H 05/18/16 10:31 Ur Squamous Epith Cells Moderate per lpf (None-Few) H 05/18/16 10:31 Ur Culture Indicated? YES (NO) A 05/18/16 10:31 - Clinical Findings Intake & Output: Intake & Output 05/20/16 05/20/16 05/20/16 07:59 15:59 23:59 Intake Total 0 / 0 1650 / 1650 Output Total 1350 / 1350 Balance -1350 / -1350 1650 / 1650 Weight 91.1 kg - Attending Attestation I examined this patient and my medical decision-making was reviewed with the SUPER[employer]ENDENT [employer]/PA/Advanced Practice Nurse/Resident Physician. I agree with the documented findings, disposition and treatment plan as described except to the extent set forth below. Dr. Phan called me to assess this patient and evaluate him to transfer to ICU. I went to 2 [id number] and found patient has abnormal breathing pattern and sleepy, but easily arouse and he is agitated when he wakes up. Patient doesn't follows any commands and there is no family around to take any history and this was taken from the chart (refer to resident HPI). Patient doesn't have any access and bedside US was done with the resident to place central line, which was the main reason to transfer patient to ICU. Patient has evidence of vascular disease with scar in his chest and also in his right lower extremity. Patient lower extremities skin with evidence of vascular disease. Subsequently peripheral access was placed. I feel patient is appropriately treated and since patient has access now, his A fib with RVR and agitation can be treated in 2NE and no need to be transferred to ICU. This was discussed with Dr. Phan and thank you for the consult.
[2016-05-20] MEDS: Levofloxacin 750 MG/150 ML 750 MG/150 ML BAG IVPB SCH (12:30)
[2016-05-20] MEDS: Furosemide 20 MG/2 ML VIAL IVP SCH ×3 (12:30→21:02)
[2016-05-20] MEDS: Piperacillin/Tazobactam 3.375 GM in D5% in Water (Mini-Bag+) 100 ML IVPB SCH ×2 (17:01→23:16)
[2016-05-20] MEDS: 0.9 % Sodium Chloride 1,000 ML IVC SCH (17:30)
[2016-05-20] MEDS: traZODone 50 MG TABLET PO SCH (21:04)
[2016-05-21] MEDS: 0.9 % Sodium Chloride 1,000 ML IVC SCH ×2 (03:20→18:41)
[2016-05-21] MEDS: *HR* LORazepam 2 MG/ML VIAL IVP PRN ×4 (03:20→22:44)
[2016-05-21] MEDS: Ipratropium Neb 0.5 MG NEBULIZER IH SCH ×4 (04:47→21:34)
[2016-05-21] MEDS: Levalbuterol Neb 0.63 MG/3 ML IH SCH ×4 (04:47→21:34)
[2016-05-21 05:06] LABS: INR 1.5; Prothrombin Time 15.8 Seconds (9.4-12.1)
[2016-05-21] MEDS: *HR* Metoprolol 5 MG/5 ML VIAL IVP SCH ×3 (06:30→17:15)
[2016-05-21 06:36] LABS: Basophils % 0.2 %; Eosinophils % 0.1 %; Hematocrit 51.3 % (37.5-50.1); Hemoglobin 15.5 g/dL (12.9-16.9); Immature Granulocytes % 0.5 % (0-4); Immature Platelets 4.1 % (1.1-6.1); Lymphocytes # 2.3 K/mcL (0.6-4.6); Lymphocytes % 14.1 %; Mean Corpuscular HGB Conc 30.2 g/dL (31.6-35.5); Mean Corpuscular Hemoglobin 26.3 pg (28.0-33.3); Mean Corpuscular Volume 86.9 fL (83.0-100.0); Mean Platelet Volume 9.9 fL (9.4-12.4); Monocytes # 1.8 K/mcL (0.0-1.3); Monocytes % 11.5 %; Neutrophils # 11.8 K/mcL (1.6-8.9); Platelet Count 218 K/mcL (140-400); Red Cell Distribution Width 17.4 % (11.5-14.5); Segmented Neutrophils % 73.6 %
[2016-05-21 06:43] LABS: Calcium 9.4 mg/dL (8.6-10.8); Potassium 4.6 mEq/L (3.5-4.5)
[2016-05-21] MEDS ORDERED: *HR* Enoxaparin 40 MG/0.4 ML SYRINGE SQ SCH (07:00)
[2016-05-21] MEDS: Finasteride 5 MG TABLET PO SCH (08:25)
[2016-05-21] MEDS: (Ketotifen Fumarate [Zaditor] 1 DROP) OP SCH ×2 (08:25→20:43)
[2016-05-21] MEDS: BUPROPION PO SCH ×2 (08:25→20:43)
[2016-05-21] MEDS: Pantoprazole 40 MG VIAL IVP SCH (08:25)
[2016-05-21] MEDS: Isosorbide MONOnitrate (24 HR) 30 MG TAB.ER.24H PO SCH (08:25)
[2016-05-21] MEDS: Artificial Tears SOLN 15 ML BOTTLE OP SCH ×3 (08:25→20:43)
[2016-05-21] MEDS: Furosemide 20 MG/2 ML VIAL IVP SCH ×3 (08:34→22:44)
[2016-05-21] MEDS: Levofloxacin 750 MG/150 ML 750 MG/150 ML BAG IVPB SCH (08:34)
[2016-05-21] MEDS: Haloperidol Lactate 5 MG/ML VIAL IVP PRN (10:45)
[2016-05-21] MEDS: Piperacillin/Tazobactam 3.375 GM in D5% in Water (Mini-Bag+) 100 ML IVPB SCH ×2 (10:48→15:52)
[2016-05-21] MEDS ORDERED: Haloperidol Lactate 5 MG/ML VIAL IVP PRN (10:50)
--- NOTE | 2016-05-21 11:14 | Palliative - Consult Note ---
Date of Encounter: 05/21/16 Time of Encounter: 11:10 - Assessment and Plan (1) Dyspnea Current Visit: Yes Status: Acute Assessment and plan: Patient appears in distress with rapid irregular breathing pattern with use of accessory muscles, followed by 8 sec periods of apnea. Will begin low dose Morphine to help with comfort and decrease work of breathing. Monitor and adjust as necessary Qualifiers: Dyspnea type: unspecified Qualified Code(s): R06.00 - Dyspnea, unspecified (2) Agitation Current Visit: Yes Status: Acute Assessment and plan: Will increase Haldol to 2mg every 4 hours PRN. Hopefully with better control of symptoms, restraints can be stopped soon. He also has Lorazepam that was stared by hospitalist this am. (3) Counseling regarding advanced care planning and goals of care Current Visit: Yes Status: Acute Assessment and plan: Long discussion with Tanesha - she is under a great deal of stress as she has just sold her house and moved to [place] with daughter. Discussed goals of care for pt and updated on current clinical condition. Tanesha does not want aggressive care - she would like to continue atb/fluids and see if he responds, but would like to transition to comfort care. Discussed that this would mean discontinuing cardiac monitoring and we would do no cardiac interventions and she verbalized understanding. Will begin low dose Opioids to assist with work of breathing. understands he is very ill and may not survive the hospital stay. Will continue to follow clinical course. (4) Atrial fibrillation Current Visit: Yes Status: Acute Assessment and plan: Rate - 90-170 at present. Discussed with - no interventions/drips desired for heart rate. Transitioning to DNRCC so will d/c Telemetry Qualifiers: Atrial fibrillation type: chronic Qualified Code(s): I48.2 - Chronic atrial fibrillation (5) Acute respiratory failure with hypoxemia Current Visit: Yes Status: Acute (6) Sepsis Current Visit: Yes Status: Acute Qualifiers: Sepsis type: sepsis due to unspecified organism Qualified Code(s): A41.9 - Sepsis, unspecified organism (7) Dementia Current Visit: No Status: Acute Qualifiers: Dementia type: Alzheimer's disease Alzheimer's disease onset: unspecified onset Dementia behavioral disturbance: without behavioral disturbance Qualified Code(s): G30.9 - Alzheimer's disease, unspecified; F02.80 - Dementia in other diseases classified elsewhere without behavioral disturbance Palliative-CN HPI - Data of Consult Requesting Physician: Gary Phan MD Primary Care Provider: [facility] - Consult Narrative History of present illness: Mr. Manzo is a 89 year old male with has been residing at the OR for the last 4 years who presented with increasing shortness of breath, tachycardia, hypoxemia and changed in mental status. Medical history pertinent for CAD, dementia, anxiety, arthritis, prostate enlargement with chronic indwelling catheter. He is being treated for sepsis with fluids and antibiotics. Suspected UTI/ pneumonia - urine culture showed contamination. Over the weekend, pt had great deal of agitation and combativeness and he had to be restrained. reports that she visits weekly - she is currently in [place] living with daughter as she has sold her home. states he was on long-term finnegan under hospice care a while back, however, his dementia and behaviors were not well controlled, so he was transitioned to new dementia unit. states he has been wheelchair bound since that time. He currently is minimally responsive - does moan occasionally. Does not open eyes or follow commands. RR irreg and utilizing accessory muscles and has periods of apnea. A-fib on monitor with rate 90-170. at bedside. CC: Gary Phan MD Past Med Surg Social Fam HX - Past Medical History Medical history: arthritis, coronary artery disease, dementia, kidney stones, other (Alzheimer's dementia) Psychiatric history: anxiety - Past Surgical History Surgical History: coronary bypass (CABG), prostatectomy, ureteral stent - Social History Smoking Status: Former smoker Smokeless Tobacco Status: No Alcohol use: none Drug use: none Medications and Allergies Acetaminophen [Tylenol] 975 mg PO TID 12/20/15 [History] Bisacodyl [Dulcolax] 10 mg RC DAILY PRN 12/20/15 [History] Carboxymethylcellulos/Glycerin [Refresh Optive Gel Eye Drops] 1 drop OP TID 09/28 [History] Hydrocortisone 1% CREAM [Cortaid] 1 appl TP BID PRN 12/20/15 [History] Isosorbide MONOnitrate (24 HR) [Imdur] 15 mg PO DAILY 12/20/15 [History] Ketotifen Fumarate [Zaditor] 1 drop OP BID 12/20/15 [History] LORazepam [Ativan] 0.5 mg PO Q6HR PRN 12/20/15 [History] Magnesium Hydroxide [Milk of Magnesia] 30 ml PO DAILY PRN 12/20/15 [History] Menthol/Zinc Oxide [Calmoseptine Ointment Packet] 1 appl TP BID 12/20/15 [ History] Methyl Salicylate/Menthol [Bengay] 1 appl TP TID PRN 12/20/15 [History] Nitroglycerin [Nitrostat] 0.4 mg SL PRN PRN 12/20/15 [History] Ondansetron HCl [Zofran] 4 mg PO Q4HR PRN 12/20/15 [History] Polyethylene Glycol 3350 [Purelax] 17 gm PO DAILY 12/20/15 [History] Sennosides/Docusate Sodium [Eql Stool Softener-Stim Lax Tb] 1 tab PO BID [History] TraZODone 100 mg PO HS 12/20/15 [History] BuPROPion SR (12 HR) [Wellbutrin SR] 50 mg PO BID 12/21/15 [History] Saline Nasal [place] [[place] Nasal [place]] 1 spray IN BID 12/22/15 [History] Finasteride [Proscar] 5 mg PO DAILY tablet 12/23/15 [Rx] Haloperidol 2 mg PO Q6HR PRN #15 tablet 12/23/15 [Rx] Melatonin 6 mg PO HS tablet 12/23/15 [Rx] Oxycodone HCl [Oxaydo] 5 mg PO Q6H PRN #20 tablet.orl 12/23/15 [Rx] Metoprolol [Lopressor] 25 mg PO BID 05/18/16 [History] Mirtazapine [Remeron] 7.5 mg PO HS 05/18/16 [History] OxyCODONE ER (12 HR) [OxyCONTIN] 20 mg PO Q12HR 05/18/16 [History] Allergies rosuvastatin Allergy (Verified 12/19/15 22:23) See Comments tetanus and diphtheria toxoids [Tetanus&Diphtheria Toxoid] Allergy (Verified 08/28 22:23) See Comments IV Contrast Allergy (Uncoded 10/23/15 17:59) See Comments ROS unobtainable: due to mental status Palliative Care-Exam - Constitutional Vitals: Temp Pulse Resp BP Pulse Ox 98.0 F 175 20 140/95 100 05/21/16 11:09 05/21/16 11:09 05/21/16 11:09 05/21/16 11:09 05/21/16 11:09 General appearance: Present: mild distress - Head Head Exam: Present: normal inspection, normocephalic - Eye Eye exam: Present: normal appearance, PERRL - ENT ENT exam: Present: mucous membranes dry - Respiratory Additional comments: Rales to bilateral bases - Cardiovascular Cardiovascular exam: Present: irregular rhythm, tachycardia Additional comments: atrial fib on monitor - rate 90-170 - GI/Abdominal Exam GI/Abdominal exam: Present: normal bowel sounds, soft - Catheter Type: Urethral (Leung) Additional comments: Clear yellow urine - Extremities Exam Additional comments: Lower extremities reddened and warm to touch. Small scabbed areas to bilateral shins - Neurological Exam Additional comments: Patient not responsive to verbal or tactile stimuli. Moans occasionally - Skin Skin exam: Present: dry, warm Internal Medicine - CN: Reslt - Labs CBC & Chem 7: 05/21/16 04:27 05/21/16 04:27 Labs: Short CBC 05/21/16 Range/Units 04:27 WBC 16.0 H (4.3-11.1) K/mcL Hgb 15.5 (12.9-16.9) g/dL Hct 51.3 H (37.5-50.1) % Plt Count 218 (140-400) K/mcL Neutrophils # 11.8 H (1.6-8.9) K/mcL BMP 05/21/16 04:27 Sodium 147 H Potassium 4.6 H Chloride 108 Carbon Dioxide 24 BUN 31 H D Creatinine 1.62 H Glucose 92 Calcium 9.4 - ABG Interpretation ABG results: PT/INR, D-dimer PT 15.8 Seconds (9.4-12.1) H 05/21/16 04:27 Consult Discharge Plan - Plan Referrals: [facility],PCP [Primary Care Provider] - Palliative Quality Palliative Quality: Screen for Code Status: Yes, Screen for Goals of Care: Yes, Screen for Pain: Yes, If Pain Regimen Started, Initiate Bowel Regimen: Yes, Screen for Nausea/Vomitting: Yes Code Status: 05/21/16 10:48 DNR [Resuscitation Status: Active] [RES] Routine Comment: Resuscitation Status: DNR-Comfort Care
--- NOTE | 2016-05-21 11:24 | Internal Med Progress Note ---
<Myles Larkin - Last Filed: 05/21/16 11:29> Date of Encounter: 05/21/16 Time of Encounter: 09:30 - Assessment and plan (1) Sepsis Current Visit: Yes Status: Acute Assessment and plan: -Multiple admissions for UTI. -WBC,tachy, urine is likely source. Lactate 3.1. -Urine culture too contaminated. Blood culture negative. -CXR shows moderate pleural effusions. Head CT shows no acute process. -Patient is hypovolemic, high creatinine. IV access removed by patient. Would benefit from fluids. BNP >500. Watch out for CHF/fluid overload Plan -Switch to zosyn and leviquin for broad spectrum. DC rocephin -1.5 fluid bolus. then 75mls/hr afterward. -Keep dawson ------- 05/21/16 Plan -Patient code status switched to DNR-CC. -Per the , she would like to continue abx and fluids for a couple of more days. Continue current medication therapy for comfort -Morphine, haldol added as PRN for comfort -Patient will be transferred to the palliative care team when a bed is available. -Thank you palliative care for your help (2) UTI (urinary tract infection) Current Visit: Yes Status: Acute Assessment and plan: Urinalysis is suggestive of urinary infection. Urine culture : contaminated and not able to identify previous culture Citrobactor : Sensitive to ceftriaxone on ceftriaxone Day 3 Urine is likely source of sepsis Plan: -DC rocephine and start levaquin and zosyn for broad spectrum until urine sensitivity comes back -Urine culture redraw. 05/21/16 -see plan under "sepsis" (3) Acute respiratory failure with hypoxemia Current Visit: Yes Status: Acute Assessment and plan: responded well to diuretic therapy will back up n diuretics -CXR shows mild pleural effusions. Oxgen saturation on RA 97%. Does have Kussmaul like respirations. Plan -Continue current therapy -Consider CT chest---thorocentesis if worsening. 05/21/16 -See plan under "sepsis" (4) Atrial fibrillation Current Visit: Yes Status: Acute Assessment and plan: -Tacky and irregular. Hypovolemic. Could benefit from fluids. -Could be exacerbated from urosepsis. -Not on any A/c : high fall risk -Family not present Plan -Continue home medication -Fluids -Treat urosepsis. Consider increasing home medication/digoxin administration if remain hypotensive 05/21/16 -See plan under "sepsis" (5) CKD (chronic kidney disease) stage 3, GFR 30-59 ml/min Current Visit: Yes Status: Acute Assessment and plan: See plan under "sepsis" (6) HTN (hypertension) Current Visit: Yes Status: Acute (7) Pulmonary edema Current Visit: Yes Status: Acute (8) LUAN (acute kidney injury) Current Visit: No Status: Acute - Subjective Interval history: Patient appears agitated and not responding to commands. Code status recently changed to DNR-CC. Patients would like to still continue abx and fluids for a couple of more days and keep the patient comfortable as possible. - Constitutional Vitals: Temp Pulse Resp BP Pulse Ox 98.0 F 175 20 140/95 100 05/21/16 11:09 05/21/16 11:09 05/21/16 11:09 05/21/16 11:09 05/21/16 11:09 General appearance: Present: mild distress. Absent: A&O X 3, answers questions appropriately - Head Head exam: Present: atraumatic, normocephalic - Respiratory Respiratory exam: Present: rhonchi, wheezes. Absent: CTAB - Cardiovascular Cardiovascular exam: Present: irregular rhythm. Absent: diastolic murmur - GI/Abdominal GI/Abdominal exam: Present: soft, no peritoneal signs - Neurological Exam Neurological exam: Present: altered. Absent: alert, oriented X3 Internal Medicine: Result - Labs CBC & Chem 7: 05/21/16 04:27 05/21/16 04:27 Labs: Short CBC 05/21/16 Range/Units 04:27 WBC 16.0 H (4.3-11.1) K/mcL Hgb 15.5 (12.9-16.9) g/dL Hct 51.3 H (37.5-50.1) % Plt Count 218 (140-400) K/mcL Neutrophils # 11.8 H (1.6-8.9) K/mcL BMP 05/21/16 04:27 Sodium 147 H Potassium 4.6 H Chloride 108 Carbon Dioxide 24 BUN 31 H D Creatinine 1.62 H Glucose 92 Calcium 9.4 - ABG Interpretation ABG results: PT/INR, D-dimer PT 15.8 Seconds (9.4-12.1) H 05/21/16 04:27 Consult Discharge Plan - Plan Referrals: [facility],PCP [Primary Care Provider] - <Gary Phan - Last Filed: 05/21/16 18:38> Date of Encounter: 05/21/16 - Assessment and plan (1) UTI (urinary tract infection) Current Visit: Yes Status: Acute Qualifiers: Urinary tract infection type: site unspecified Hematuria presence: without hematuria Qualified Code(s): N39.0 - Urinary tract infection, site not specified (2) Acute respiratory failure with hypoxemia Current Visit: Yes Status: Acute (3) Atrial fibrillation Current Visit: Yes Status: Acute Qualifiers: Atrial fibrillation type: chronic Qualified Code(s): I48.2 - Chronic atrial fibrillation (4) HTN (hypertension) Current Visit: Yes Status: Acute Qualifiers: Hypertension type: essential hypertension Qualified Code(s): I10 - Essential (primary) hypertension (5) CKD (chronic kidney disease) stage 3, GFR 30-59 ml/min Current Visit: Yes Status: Acute - Constitutional Vitals: Temp Pulse Resp BP Pulse Ox 97.6 F 139 28 117/103 99 05/21/16 15:36 05/21/16 15:36 05/21/16 17:18 05/21/16 15:36 05/21/16 17:18 Internal Medicine: Result - Labs CBC & Chem 7: 05/21/16 04:27 05/21/16 04:27 Labs: Short CBC 05/21/16 Range/Units 04:27 WBC 16.0 H (4.3-11.1) K/mcL Hgb 15.5 (12.9-16.9) g/dL Hct 51.3 H (37.5-50.1) % Plt Count 218 (140-400) K/mcL Neutrophils # 11.8 H (1.6-8.9) K/mcL BMP 05/21/16 04:27 Sodium 147 H Potassium 4.6 H Chloride 108 Carbon Dioxide 24 BUN 31 H D Creatinine 1.62 H Glucose 92 Calcium 9.4 - ABG Interpretation ABG results: PT/INR, D-dimer PT 15.8 Seconds (9.4-12.1) H 05/21/16 04:27 - Attending Attestation I examined this patient and my medical decision-making was reviewed with the [employer]KER/PA/Advanced Practice Nurse/Resident Physician. I agree with the documented findings, disposition and treatment plan as described except to the extent set forth below.
[2016-05-21] MEDS: *HR* Morphine 2 MG/ML SYRINGE IVP PRN ×3 (11:44→18:41)
--- NOTE | 2016-05-21 13:00 | Electrocardiograph Report ---
[place] [id number] Test Date: 2016-05-18 Pat Name: Kai Manzo Department: [id number] Room: [id number] Gender: M Commodity Director: : [id number] Requested By: Jose Elias Carr Order Number: [id number] Reading MD: Kai Ashraf Measurements Intervals [place] Rate: 109 P: ID: 0 QRS: -15 QRSD: 101 T: 163 QT: 347 QTc: 411 Interpretive Statements ATRIAL FIBRILLATION WITH RAPID VENTRICULAR RESPONSE POSSIBLE ANTERIOR MYOCARDIAL INFARCTION, PROBABLY OLD ABNORMAL RHYTHM ECG Electronically Signed On 05-21-2016 12:58:58 EST by Kai Ashraf
[2016-05-21] MEDS: traZODone 50 MG TABLET PO SCH (20:43)
[2016-05-22] MEDS: Piperacillin/Tazobactam 3.375 GM in D5% in Water (Mini-Bag+) 100 ML IVPB SCH ×4 (00:13→23:45)
[2016-05-22] MEDS: *HR* Metoprolol 5 MG/5 ML VIAL IVP SCH ×5 (00:13→23:46)
[2016-05-22] MEDS: *HR* Morphine 2 MG/ML SYRINGE IVP PRN ×6 (01:18→20:54)
[2016-05-22] MEDS: *HR* LORazepam 2 MG/ML VIAL IVP PRN ×2 (04:00→09:51)
[2016-05-22] MEDS: Ipratropium Neb 0.5 MG NEBULIZER IH SCH ×4 (04:19→22:35)
[2016-05-22] MEDS: Levalbuterol Neb 0.63 MG/3 ML IH SCH ×4 (04:19→22:35)
[2016-05-22] MEDS: *HR* Enoxaparin 30 MG/0.3 ML SYRINGE SQ SCH (06:58)
[2016-05-22 06:59] LABS: INR 1.5; Prothrombin Time 16.6 Seconds (9.4-12.1)
[2016-05-22 08:00] LABS: Albumin 2.8 g/dL (3.5-5.0); Albumin/Globulin Ratio 0.7 (1.1-2.2); Calcium 9.2 mg/dL (8.6-10.8); Globulin 4.1 g/dL (2.4-3.5); Potassium 3.7 mEq/L (3.5-4.5); Total Protein 6.9 g/dL (6.0-8.3)
[2016-05-22] MEDS: Furosemide 20 MG/2 ML VIAL IVP SCH ×3 (08:33→20:54)
[2016-05-22] MEDS: Pantoprazole 40 MG VIAL IVP SCH (08:33)
[2016-05-22] MEDS: Artificial Tears SOLN 15 ML BOTTLE OP SCH ×3 (08:37→20:53)
--- NOTE | 2016-05-22 09:40 | Discharge Summary ---
<TraeMyles - Last Filed: 05/22/16 17:57> Date of Encounter: 05/22/16 Time of Encounter: 08:15 - Discharge Diagnosis (1) Sepsis Status: Acute Comments: - is not present in the room to discuss if abx can be discontinued. -Until we can talk with , continue fluids and antibiotics. Qualifiers: Sepsis type: sepsis due to unspecified organism Qualified Code(s): A41.9 - Sepsis, unspecified organism (2) UTI (urinary tract infection) Status: Acute Qualifiers: Urinary tract infection type: site unspecified Hematuria presence: without hematuria Qualified Code(s): N39.0 - Urinary tract infection, site not specified (3) Acute respiratory failure with hypoxemia Status: Acute (4) Atrial fibrillation Status: Acute Qualifiers: Atrial fibrillation type: chronic Qualified Code(s): I48.2 - Chronic atrial fibrillation (5) CKD (chronic kidney disease) stage 3, GFR 30-59 ml/min Status: Acute (6) HTN (hypertension) Status: Acute Qualifiers: Hypertension type: essential hypertension Qualified Code(s): I10 - Essential (primary) hypertension (7) Pulmonary edema Status: Acute Qualifiers: Chronicity: acute Qualified Code(s): J81.0 - Acute pulmonary edema (8) LUAN (acute kidney injury) Status: Acute - Discharge Medications Home Medications: Acetaminophen [Tylenol] 975 mg PO TID 12/20/15 [History] Bisacodyl [Dulcolax] 10 mg RC DAILY PRN 12/20/15 [History] Carboxymethylcellulos/Glycerin [Refresh Optive Gel Eye Drops] 1 drop OP TID 09/28 [History] Hydrocortisone 1% CREAM [Cortaid] 1 appl TP BID PRN 12/20/15 [History] Isosorbide MONOnitrate (24 HR) [Imdur] 15 mg PO DAILY 12/20/15 [History] Ketotifen Fumarate [Zaditor] 1 drop OP BID 12/20/15 [History] LORazepam [Ativan] 0.5 mg PO Q6HR PRN 12/20/15 [History] Magnesium Hydroxide [Milk of Magnesia] 30 ml PO DAILY PRN 12/20/15 [History] Menthol/Zinc Oxide [Calmoseptine Ointment Packet] 1 appl TP BID 12/20/15 [ History] Methyl Salicylate/Menthol [Bengay] 1 appl TP TID PRN 12/20/15 [History] Nitroglycerin [Nitrostat] 0.4 mg SL PRN PRN 12/20/15 [History] Ondansetron HCl [Zofran] 4 mg PO Q4HR PRN 12/20/15 [History] Polyethylene Glycol 3350 [Purelax] 17 gm PO DAILY 12/20/15 [History] Sennosides/Docusate Sodium [Eql Stool Softener-Stim Lax Tb] 1 tab PO BID [History] TraZODone 100 mg PO HS 12/20/15 [History] BuPROPion SR (12 HR) [Wellbutrin SR] 50 mg PO BID 12/21/15 [History] Saline Nasal [place] [[place] Nasal [place]] 1 spray IN BID 12/22/15 [History] Finasteride [Proscar] 5 mg PO DAILY tablet 12/23/15 [Rx] Haloperidol 2 mg PO Q6HR PRN #15 tablet 12/23/15 [Rx] Melatonin 6 mg PO HS tablet 12/23/15 [Rx] Oxycodone HCl [Oxaydo] 5 mg PO Q6H PRN #20 tablet.orl 12/23/15 [Rx] Metoprolol [Lopressor] 25 mg PO BID 05/18/16 [History] Mirtazapine [Remeron] 7.5 mg PO HS 05/18/16 [History] OxyCODONE ER (12 HR) [OxyCONTIN] 20 mg PO Q12HR 05/18/16 [History] Allergies/Adverse Reactions: Allergies rosuvastatin Allergy (Verified 12/19/15 22:23) See Comments tetanus and diphtheria toxoids [Tetanus&Diphtheria Toxoid] Allergy (Verified 08/28 22:23) See Comments IV Contrast Allergy (Uncoded 10/23/15 17:59) See Comments Date of admission: 05/18/16 12:01 [facility] care physician: [facility] Consults: 05/18/16 12:20 Consult to Wound Care [CONS] Routine Reason for Consult: Le ulcers Call Completed: No 05/21/16 10:27 Consult to Palliative Care [CONS] Routine Comment: pt dnr-cc at facility. Consulting Provider: [facility] [place] Discharging clinician: Myles Larkin Anticipated date of discharge: 05/22/16 - Patient Status Disposition: Hospice - Medical Facility Condition: Fair Functional capacity at discharge: bed bound Overall status at discharge: patient is not back to baseline - Discharge Instructions Instructions: Atrial Fibrillation (DC), Viral Pneumonia (DC), Viral Pneumonia ( GEN), Urinary Tract Infection in Men (DC), Sepsis (DC), Chronic Hypertension (DC ) Follow Up With: [facility],PCP [Primary Care Provider] - Additional Instructions: Follow-up appointments: If there is not an appointment listed below, please call your physician and schedule a follow-up appointment. If you have congestive heart failure and your symptoms return, make an appointment with your physician. Symptoms: If your condition changes or you experience any of the following symptoms, notify your physician immediately: Unusual or worsening pain, fever, persistent nausea and vomiting, bleeding, increase in swelling (especially in your legs), sudden weight gain, extreme dizziness, chest pain, increased drainage or redness from a wound or incision. Go to the emergency department if you experience a problem with breathing. Weights: If you have a history of swelling or shortness of breath, weigh yourself daily and notify your physician if you have a weight gain of two or more pounds in one day or 5 or more pounds in a week. If you experience any of the warning signs for stroke: Sudden numbness or weakness of the face, arm or leg; especially on one side of the body, sudden confusion, trouble speaking or understanding, sudden trouble seeing in one or both eyes, sudden trouble walking, dizziness, loss of balance or coordination, sudden sever headache with no cause; Call 911 or go to the emergency room. Stroke is a medical emergency. Some risk factors for stroke: Age, cigarette smoking, diabetes, excessive alcohol consumption, family history , high blood pressure, overweight, physical inactivity, prior stroke, heart attack, diagnosis of carotid artery stenosis or other artery disease. If you smoke, STOP: Smoking or tobacco use significantly increases your risk of heart and lung disease. Your chance of disease greatly increases if you continue to smoke. For more information, call the [place] tobacco quit line for smoking cessation QUIT-NOW ( ) - Diet and Activity Activity: increase activity as tolerated Diet: advance to your usual diet Hospital course: Mr. Manzo is a 89 year old male who was admitted for urosepsis. Patient placed on antibiotics and fluids. Patient continued to receive care until patient's declared patient was in fact a DNR-CC. From then on, abx and fluids were maintained, morphine, haldol, ativan added to regimen to keep patient comfortable. Original plan is to have patient transfer to [facility] palliative [facility]. However, the patient is from the [place], so there has been some complication with the discharge. Awaiting palliative suggestions. - Time Spent with Patient Total time spent providing and/or coordinating discharge services: Less than 30 minutes - Constitutional Vitals: Temp Pulse Resp BP Pulse Ox 99.1 F 152 36 104/82 100 05/22/16 07:15 05/22/16 07:15 05/22/16 07:15 05/22/16 07:15 05/22/16 07:15 General appearance: Present: mild distress. Absent: A&O X 3, answers questions appropriately - Head Head exam: Present: atraumatic, normocephalic - Eye Eye exam: Present: PERRL, conjuntiva pink, sclera anicteric Pupils: Present: PERRL - Neck Neck exam general surgery: Present: supple, trachea midline. Absent: lymphadenopathy - Respiratory Respiratory exam: Present: wheezes - Cardiovascular Cardiovascular exam: Present: irregular rhythm - GI/Abdominal GI/Abdominal exam: Present: normal bowel sounds, soft, no peritoneal signs. Absent: distended, tenderness - Extremities Exam Extremities exam: Present: warm, radial pulses palpable and symetrical. Absent : calf tenderness, cyanotic, pedal edema - Neurological Exam Neurological exam: Present: altered. Absent: oriented X3, pronater drift, facial droop, speech deficit - Skin Skin exam: Present: dry, intact <Emilie,Gary P - Last Filed: 05/22/16 18:18> Date of Encounter: 05/22/16 - Discharge Diagnosis (1) UTI (urinary tract infection) Priority: Primary Status: Acute Qualifiers: Urinary tract infection type: site unspecified Hematuria presence: without hematuria Qualified Code(s): N39.0 - Urinary tract infection, site not specified (2) Acute respiratory failure with hypoxemia Priority: Primary Status: Acute (3) Atrial fibrillation Priority: Primary Status: Acute Qualifiers: Atrial fibrillation type: chronic Qualified Code(s): I48.2 - Chronic atrial fibrillation (4) HTN (hypertension) Priority: Secondary Status: Acute Qualifiers: Hypertension type: essential hypertension Qualified Code(s): I10 - Essential (primary) hypertension (5) CKD (chronic kidney disease) stage 3, GFR 30-59 ml/min Priority: Secondary Status: Acute Date of admission: 05/18/16 12:01 Primary care physician: [facility] Consults: 05/18/16 12:20 Consult to Wound Care [CONS] Routine Reason for Consult: Le ulcers Call Completed: No 05/21/16 10:27 Consult to Palliative Care [CONS] Routine Comment: pt dnr-cc at facility. Consulting Provider: [facility] [place] 05/22/16 16:51 Consult to Hand [employer] Maker [CONS] Routine Reason for SW Consult: HOME HEALTH REFFERAL FOR PATIENT TO GET IV ATB Hospital course: Mr. Manzo is a 89 year old male - Time Spent with Patient Total time spent providing and/or coordinating discharge services: - Constitutional Vitals: Temp Pulse Resp BP Pulse Ox 98.0 F 158 30 136/118 100 05/22/16 15:23 05/22/16 15:23 05/22/16 16:23 05/22/16 15:23 05/22/16 16:23 - Attending Attestation I examined this patient and my medical decision-making was reviewed with the HOSPITAL PLAN ADMINISTRATOR/PA/Advanced Practice Nurse/Resident Physician. I agree with the documented findings, disposition and treatment plan as described except to the extent set forth below.
--- NOTE | 2016-05-22 13:11 | Palliative Progress Note ---
Date of Encounter: 05/22/16 Time of Encounter: 13:10 - Assessment and plan (1) Dyspnea Current Visit: Yes Status: Acute Assessment and plan: Continue low dose morphine PRN. Has received x 7 last 24 hours. Will most likely transition to Roxanol concentrate in am [facility]. Qualifiers: Dyspnea type: unspecified Qualified Code(s): R06.00 - Dyspnea, unspecified (2) Agitation Current Visit: Yes Status: Acute Assessment and plan: Continue Haldol PRN - has utilized x1 last 24 hours. Transition to po tomorrow am. Will also need Lorazepam SL prior to discharge (3) Counseling regarding advanced care planning and goals of care Current Visit: Yes Status: Acute Assessment and plan: Family not here and I have tried several times to reach by phone and have been unsuccessful. He does not appear to have improved with another 24 hours of fluids/atb. Discussed with Palliative [facility] at NH, he may be able to return to dementia unit and have [facility] hospice involved in his care. Will d/w when I reach her. Updated Dr. Phan. (4) Atrial fibrillation Current Visit: Yes Status: Acute Qualifiers: Atrial fibrillation type: chronic Qualified Code(s): I48.2 - Chronic atrial fibrillation (5) Acute respiratory failure with hypoxemia Current Visit: Yes Status: Acute (6) Sepsis Current Visit: Yes Status: Acute Qualifiers: Sepsis type: sepsis due to unspecified organism Qualified Code(s): A41.9 - Sepsis, unspecified organism (7) Dementia Current Visit: No Status: Acute Qualifiers: Dementia type: Alzheimer's disease Alzheimer's disease onset: unspecified onset Dementia behavioral disturbance: without behavioral disturbance Qualified Code(s): G30.9 - Alzheimer's disease, unspecified; F02.80 - Dementia in other diseases classified elsewhere without behavioral disturbance - Time Spent With Patient Total time spent is greater than 50% in coordination of care (as documented) at patient's floor/unit and/or counseling patient: 25 - 35 minutes - Subjective Interval history: Patient attempts to open eyes when name spoken, moans at intervals. Continues with irreg respirations with 8-10 sec periods of apnea. No family at bedside. - Constitutional Vitals: Abnormal lab results WBC 16.0 K/mcL (4.3-11.1) H 05/21/16 04:27 RBC 5.90 M/mcL (4.19-5.50) H 05/21/16 04:27 Hct 51.3 % (37.5-50.1) H 05/21/16 04:27 MCH 26.3 pg (28.0-33.3) L 05/21/16 04:27 MCHC 30.2 g/dL (31.6-35.5) L 05/21/16 04:27 RDW 17.4 % (11.5-14.5) H 05/21/16 04:27 Neutrophils # 11.8 K/mcL (1.6-8.9) H 05/21/16 04:27 Monocytes # 1.8 K/mcL (0.0-1.3) H 05/21/16 04:27 PT 16.6 Seconds (9.4-12.1) H 05/22/16 06:06 APTT 37.9 Seconds (26.0-36.0) H 05/18/16 10:07 BUN 31 mg/dL (8-26) H 05/22/16 06:06 Creatinine 1.70 mg/dL (0.72-1.25) H 05/22/16 06:06 Est GFR ( Amer) 46 (> 60) L 05/22/16 06:06 Est GFR (Non-Af Amer) 38 (> 60) L 05/22/16 06:06 Calculated Osmolality 304 (280-300) H 05/22/16 06:06 Lactic Acid 3.1 mmol/L (0.5-2.2) H 05/18/16 10:07 Total Bilirubin 3.0 mg/dL (0.2-1.2) H 05/22/16 06:06 B-Natriuretic Peptide 1098 pg/mL (0-100) H 05/19/16 05:52 Albumin 2.8 g/dL (3.5-5.0) L 05/22/16 06:06 Globulin 4.1 g/dL (2.4-3.5) H 05/22/16 06:06 Albumin/Globulin Ratio 0.7 (1.1-2.2) L 05/22/16 06:06 Urine Clarity Cloudy (Clear) A 05/18/16 10:31 Urine Protein >=300 mg/dL (Neg-Trace) H 05/18/16 10:31 Urine Blood Large (Negative) H 05/18/16 10:31 Ur Leukocyte Esterase Moderate (Negative) H 05/18/16 10:31 Urine Microscopic RBC 50-100 per hpf (0-3) H 05/18/16 10:31 Urine Microscopic WBC TNTC per hpf (0-3) H 05/18/16 10:31 Ur Squamous Epith Cells Moderate per lpf (None-Few) H 05/18/16 10:31 Ur Culture Indicated? YES (NO) A 05/18/16 10:31 General appearance: Present: mild distress - Respiratory Additional comments: Occasional rhonchi noted. - Cardiovascular Cardiovascular exam: Present: irregular rhythm, tachycardia - GI/Abdominal GI/Abdominal exam: Present: normal bowel sounds, soft - Additional comments: Urine light dunia - Extremities Exam Additional comments: Lower extremities with scabbed areas, skin tears. - Neurological Exam Additional comments: Patient does not follow commands, becomes restless with exam. Attempts to open eyes when call name. No other response - Skin Skin exam: Present: dry, warm Palliative Quality Palliative Quality: Screen for Code Status: Yes, Screen for Goals of Care: Yes, Screen for Pain: Yes, If Pain Regimen Started, Initiate Bowel Regimen: Yes, Screen for Nausea/Vomitting: Yes Code Status: 05/21/16 10:48 DNR [Resuscitation Status: Active] [RES] Routine Comment: Resuscitation Status: DNR-Comfort Care - Labs CBC & Chem 7: 05/21/16 04:27 05/22/16 06:06 Labs: Laboratory Results - last 24 hr 05/22/16 05/22/16 05/22/16 00:24 06:06 06:06 PT 16.6 H INR 1.5 Sodium 144 Potassium 3.7 Chloride 107 Carbon Dioxide 22 BUN 31 H Creatinine 1.70 H Est GFR ( Amer) 46 L Est GFR (Non-Af Amer) 38 L BUN/Creatinine Ratio 18 Glucose 85 POC Glucose 90 H Calculated Osmolality 304 H Calcium 9.2 Total Bilirubin 3.0 H AST 32 ALT 29 Alkaline Phosphatase 126 Serum Total Protein 6.9 Albumin 2.8 L Globulin 4.1 H Albumin/Globulin Ratio 0.7 L 05/22/16 08:01 PT INR Sodium Potassium Chloride Carbon Dioxide BUN Creatinine Est GFR ( Amer) Est GFR (Non-Af Amer) BUN/Creatinine Ratio Glucose POC Glucose 84 Calculated Osmolality Calcium Total Bilirubin AST ALT Alkaline Phosphatase Serum Total Protein Albumin Globulin Albumin/Globulin Ratio - ABG Interpretation ABG results: PT/INR, D-dimer PT 16.6 Seconds (9.4-12.1) H 05/22/16 06:06 Consult Discharge Plan - Plan Instructions: Atrial Fibrillation (DC), Viral Pneumonia (DC), Viral Pneumonia ( GEN), Urinary Tract Infection in Men (DC), Sepsis (DC), Chronic Hypertension (DC ) Additional Instructions: Follow-up appointments: If there is not an appointment listed below, please call your physician and schedule a follow-up appointment. If you have congestive heart failure and your symptoms return, make an appointment with your physician. Symptoms: If your condition changes or you experience any of the following symptoms, notify your physician immediately: Unusual or worsening pain, fever, persistent nausea and vomiting, bleeding, increase in swelling (especially in your legs), sudden weight gain, extreme dizziness, chest pain, increased drainage or redness from a wound or incision. Go to the emergency department if you experience a problem with breathing. Weights: If you have a history of swelling or shortness of breath, weigh yourself daily and notify your physician if you have a weight gain of two or more pounds in one day or 5 or more pounds in a week. If you experience any of the warning signs for stroke: Sudden numbness or weakness of the face, arm or leg; especially on one side of the body, sudden confusion, trouble speaking or understanding, sudden trouble seeing in one or both eyes, sudden trouble walking, dizziness, loss of balance or coordination, sudden sever headache with no cause; Call 911 or go to the emergency room. Stroke is a medical emergency. Some risk factors for stroke: Age, cigarette smoking, diabetes, excessive alcohol consumption, family history , high blood pressure, overweight, physical inactivity, prior stroke, heart attack, diagnosis of carotid artery stenosis or other artery disease. If you smoke, STOP: Smoking or tobacco use significantly increases your risk of heart and lung disease. Your chance of disease greatly increases if you continue to smoke. For more information, call the [place] tobacco quit line for smoking cessation -NOW ( ) Referrals: [facility] [Primary Care Provider] -
[2016-05-22] MEDS: Isosorbide MONOnitrate (24 HR) 30 MG TAB.ER.24H PO SCH (15:13)
[2016-05-22] MEDS: BUPROPION PO SCH ×2 (15:14→20:52)
[2016-05-22] MEDS: Finasteride 5 MG TABLET PO SCH (15:14)
[2016-05-22] MEDS: (Ketotifen Fumarate [Zaditor] 1 DROP) OP SCH ×2 (15:14→20:52)
[2016-05-22] MEDS: traZODone 50 MG TABLET PO SCH (20:52)
[2016-05-22] MEDS: 0.9 % Sodium Chloride 1,000 ML IVC SCH (23:46)
[2016-05-23] MEDS: *HR* Morphine 2 MG/ML SYRINGE IVP PRN ×3 (00:59→08:15)
[2016-05-23] MEDS: Ipratropium Neb 0.5 MG NEBULIZER IH SCH ×2 (04:16→10:18)
[2016-05-23] MEDS: Levalbuterol Neb 0.63 MG/3 ML IH SCH ×2 (04:16→10:18)
[2016-05-23 04:54] LABS: INR 1.6; Prothrombin Time 17.6 Seconds (9.4-12.1)
[2016-05-23] MEDS: *HR* Enoxaparin 30 MG/0.3 ML SYRINGE SQ SCH (06:02)
[2016-05-23] MEDS: *HR* Metoprolol 5 MG/5 ML VIAL IVP SCH ×2 (06:02→08:17)
[2016-05-23] MEDS ORDERED: Acetaminophen 650 MG RECTAL SUPP RC PRN (08:15)
[2016-05-23] MEDS: Pantoprazole 40 MG VIAL IVP SCH (08:17)
[2016-05-23] MEDS: Furosemide 20 MG/2 ML VIAL IVP SCH (08:17)
[2016-05-23] MEDS: Artificial Tears SOLN 15 ML BOTTLE OP SCH (08:25)
[2016-05-23] MEDS: Isosorbide MONOnitrate (24 HR) 30 MG TAB.ER.24H PO SCH (08:25)
[2016-05-23] MEDS: Finasteride 5 MG TABLET PO SCH (08:25)
[2016-05-23] MEDS: (Ketotifen Fumarate [Zaditor] 1 DROP) OP SCH (08:25)
[2016-05-23] MEDS: BUPROPION PO SCH (08:25)
[2016-05-23] MEDS ORDERED: Haloperidol Oral Conc 10 MG/5 ML UDC PO PRN (08:46)
[2016-05-23] MEDS ORDERED: *HR* LORazepam Oral Conc 2 MG/ML PO PRN (08:48)
--- NOTE | 2016-05-23 08:51 | Palliative Progress Note ---
Date of Encounter: 05/23/16 Time of Encounter: 08:40 - Assessment and plan (1) Dyspnea Current Visit: Yes Status: Acute Assessment and plan: Will transition to po Roxanol this am. Will schedule every 4 hours and have hourly PRN doses if needed. Qualifiers: Dyspnea type: unspecified Qualified Code(s): R06.00 - Dyspnea, unspecified (2) Agitation Current Visit: Yes Status: Acute Assessment and plan: Transition Lorazepam and Haloperidol to [facility] for [facility]. (3) Counseling regarding advanced care planning and goals of care Current Visit: Yes Status: Acute Assessment and plan: D/W Dr. Spencer. Awaiting Social service to contact [place] - however, she should be able to return to [place] today with hospice care. Spoke with via phone last evening and she is in agreement with the plan. He has continued to decline despite IV atb/fluids. Anticipate discharge today. (4) Atrial fibrillation Current Visit: Yes Status: Acute Qualifiers: Atrial fibrillation type: chronic Qualified Code(s): I48.2 - Chronic atrial fibrillation (5) Acute respiratory failure with hypoxemia Current Visit: Yes Status: Acute (6) Sepsis Current Visit: Yes Status: Acute Qualifiers: Sepsis type: sepsis due to unspecified organism Qualified Code(s): A41.9 - Sepsis, unspecified organism (7) Dementia Current Visit: No Status: Acute Qualifiers: Dementia type: Alzheimer's disease Alzheimer's disease onset: unspecified onset Dementia behavioral disturbance: without behavioral disturbance Qualified Code(s): G30.9 - Alzheimer's disease, unspecified; F02.80 - Dementia in other diseases classified elsewhere without behavioral disturbance - Time Spent With Patient Total time spent is greater than 50% in coordination of care (as documented) at patient's floor/unit and/or counseling patient: 25 - 35 minutes - Subjective Interval history: Patient resting upon my arrival - becomes restless/moans with assessment. continues with irreg breathing pattern with 10-12 sec periods of apnea, then rapid breathing with accessory muscle use. + fevers. No family at bedside. - Constitutional Vitals: Abnormal lab results WBC 16.0 K/mcL (4.3-11.1) H 05/21/16 04:27 RBC 5.90 M/mcL (4.19-5.50) H 05/21/16 04:27 Hct 51.3 % (37.5-50.1) H 05/21/16 04:27 MCH 26.3 pg (28.0-33.3) L 05/21/16 04:27 MCHC 30.2 g/dL (31.6-35.5) L 05/21/16 04:27 RDW 17.4 % (11.5-14.5) H 05/21/16 04:27 Neutrophils # 11.8 K/mcL (1.6-8.9) H 05/21/16 04:27 Monocytes # 1.8 K/mcL (0.0-1.3) H 05/21/16 04:27 PT 17.6 Seconds (9.4-12.1) H 05/23/16 03:54 APTT 37.9 Seconds (26.0-36.0) H 05/18/16 10:07 BUN 31 mg/dL (8-26) H 05/22/16 06:06 Creatinine 1.70 mg/dL (0.72-1.25) H 05/22/16 06:06 Est GFR ( Amer) 46 (> 60) L 05/22/16 06:06 Est GFR (Non-Af Amer) 38 (> 60) L 05/22/16 06:06 Calculated Osmolality 304 (280-300) H 05/22/16 06:06 Lactic Acid 3.1 mmol/L (0.5-2.2) H 05/18/16 10:07 Total Bilirubin 3.0 mg/dL (0.2-1.2) H 05/22/16 06:06 B-Natriuretic Peptide 1098 pg/mL (0-100) H 05/19/16 05:52 Albumin 2.8 g/dL (3.5-5.0) L 05/22/16 06:06 Globulin 4.1 g/dL (2.4-3.5) H 05/22/16 06:06 Albumin/Globulin Ratio 0.7 (1.1-2.2) L 05/22/16 06:06 Urine Clarity Cloudy (Clear) A 05/18/16 10:31 Urine Protein >=300 mg/dL (Neg-Trace) H 05/18/16 10:31 Urine Blood Large (Negative) H 02/03/17 10:31 Ur Leukocyte Esterase Moderate (Negative) H 05/18/16 10:31 Urine Microscopic RBC 50-100 per hpf (0-3) H 05/18/16 10:31 Urine Microscopic WBC TNTC per hpf (0-3) H 05/18/16 10:31 Ur Squamous Epith Cells Moderate per lpf (None-Few) H 05/18/16 10:31 Ur Culture Indicated? YES (NO) A 05/18/16 10:31 General appearance: Present: no acute distress - Respiratory Respiratory exam: Present: CTAB Additional comments: Resp irreg with periods of apnea. - Cardiovascular Cardiovascular exam: Present: irregular rhythm, tachycardia - GI/Abdominal GI/Abdominal exam: Present: normal bowel sounds, soft - Extremities Exam Extremities exam: Present: normal capillary refill, normal inspection - Neurological Exam Additional comments: Minimally responsive, restless and moans with assessment. Does not follow commands - Skin Skin exam: Present: dry, warm Palliative Quality Palliative Quality: Screen for Code Status: Yes, Screen for Goals of Care: Yes, Screen for Pain: Yes, If Pain Regimen Started, Initiate Bowel Regimen: Yes, Screen for Nausea/Vomitting: Yes Code Status: 05/21/16 10:48 DNR [Resuscitation Status: Active] [RES] Routine Comment: Resuscitation Status: DNR-Comfort Care - Labs CBC & Chem 7: 05/21/16 04:27 05/22/16 06:06 Labs: Laboratory Results - last 24 hr 05/22/16 05/22/16 05/22/16 08:01 11:30 17:20 PT INR POC Glucose 84 88 78 05/23/16 03:54 PT 17.6 H INR 1.6 POC Glucose - ABG Interpretation ABG results: PT/INR, D-dimer PT 17.6 Seconds (9.4-12.1) H 05/23/16 03:54 Consult Discharge Plan - Plan Instructions: Atrial Fibrillation (DC), Viral Pneumonia (DC), Viral Pneumonia ( GEN), Urinary Tract Infection in Men (DC), Sepsis (DC), Chronic Hypertension (DC ) Additional Instructions: Follow-up appointments: If there is not an appointment listed below, please call your physician and schedule a follow-up appointment. If you have congestive heart failure and your symptoms return, make an appointment with your physician. Symptoms: If your condition changes or you experience any of the following symptoms, notify your physician immediately: Unusual or worsening pain, fever, persistent nausea and vomiting, bleeding, increase in swelling (especially in your legs), sudden weight gain, extreme dizziness, chest pain, increased drainage or redness from a wound or incision. Go to the emergency department if you experience a problem with breathing. Weights: If you have a history of swelling or shortness of breath, weigh yourself daily and notify your physician if you have a weight gain of two or more pounds in one day or 5 or more pounds in a week. If you experience any of the warning signs for stroke: Sudden numbness or weakness of the face, arm or leg; especially on one side of the body, sudden confusion, trouble speaking or understanding, sudden trouble seeing in one or both eyes, sudden trouble walking, dizziness, loss of balance or coordination, sudden sever headache with no cause; Call 911 or go to the emergency room. Stroke is a medical emergency. Some risk factors for stroke: Age, cigarette smoking, diabetes, excessive alcohol consumption, family history , high blood pressure, overweight, physical inactivity, prior stroke, heart attack, diagnosis of carotid artery stenosis or other artery disease. If you smoke, STOP: Smoking or tobacco use significantly increases your risk of heart and lung disease. Your chance of disease greatly increases if you continue to smoke. For more information, call the [place] tobacco quit line for smoking cessation QUIT-NOW ( ) Referrals: [facility] [Primary Care Provider] -
[2016-05-23] MEDS ORDERED: Levofloxacin 750 MG/150 ML 750 MG/150 ML BAG IVPB SCH (09:00)
[2016-05-23] MEDS: Morphine Oral CONC 5 MG/0.25 ML ORAL.SYG PO PRN ×2 (09:48→14:35)
--- NOTE | 2016-05-23 11:54 | Event Note ---
<Myles Larkin - Last Filed: 05/23/16 11:52> Date of Encounter: 05/23/16 Time of Encounter: 11:53 Patient's has decided to stop everything except comfort meds-narcotics, ativan, etc. Fluids and antibiotics stopped. <Gary Phan - Last Filed: 05/23/16 17:07> Date of Encounter: 05/23/16 I examined this patient and my medical decision-making was reviewed with the CHANGE COORDINATOR/PA/Advanced Practice Nurse/Resident Physician. I agree with the documented findings, disposition and treatment plan as described except to the extent set forth below.
[2016-05-23] MEDS ORDERED: Acetaminophen 650 MG RECTAL SUPP RC SCH (12:00)
[2016-05-23] MEDS ORDERED: Morphine Oral CONC 5 MG/0.25 ML ORAL.SYG PO SCH (12:00)
[2016-05-23] MEDS ORDERED: *HR* LORazepam Oral Conc 2 MG/ML PO SCH (12:00)
[2016-05-23 12:23] VITALS: BP 127/109
== END 2016-05-23 14:35 | disposition hospice, inpatient (51) | DRG 871 ==
LOC: EMEROO 09:25 → 2NENU 09:25
PROVIDERS: ADMIT Internal Medicine; ATTEND Internal Medicine